=== PATIENT | male | born 1950 | race Caucasian/White ===

== ENCOUNTER → 2018-10-08 | Outpatient (CLI) | payer OTHER | END | disposition home or self-care (01) | LOC: LAB 08:00 | PROVIDERS: ATTEND Orthopaedic Surgery | DX: Z01.818 Encounter for other preprocedural examination (principal) ==

== ENCOUNTER 2018-10-17 08:30 | Inpatient (IN) | payer MEDICARE, OTHER ==
[~2018-10-17] VITALS: Ht 182.9 cm; Wt 90.4 kg
[~2018-10-17 08:30] MED LIST: ACETAMINOPHEN 500 MG TAB PO ONE; CEFAZOLIN 2 GM/50 ML (PMX) 50 ML IVPB ONE; DEXAMETHASONE 4 MG/ML 1 ML INJ IV ONE; LACTATED RINGER'S 1,000 ML IV* SCH; TRANEXAMIC ACID 1,000 MG in NS 100 ML INTRA-OP X1 IVPB ONE; TRANEXAMIC ACID 1,000 MG in NS 100 ML PRE-OP X1 IVPB ONE
[2018-11-21] VITALS (22 sets, daily range): BP systolic 93–136; BP diastolic 54–87; PULSE 71–92; RESP 16–20; Ht 182.9 cm; Wt 90.4 kg
[2018-11-21] MEDS ORDERED: EPHEDrine SULFATE 50 MG/5 ML SYG ONE (07:00)
[2018-11-21] MEDS ORDERED: SEVOFLURANE 15 MIN ONE (07:00)
[2018-11-21] MEDS ORDERED: ATOR40TA68 PO (09:32)
[2018-11-21] MEDS ORDERED: ASPI81TA52 PO (09:33)
[2018-11-21] MEDS ORDERED: AMLO1CAP10 PO (09:33)
--- NOTE | 2018-11-21 10:36 | HPN ---
Date/Time of Note Date/Time of Note DATE: 11/21/18 TIME: 10:36 Interval H&P Admission Note Pt. seen H&P reviewed: No system changes DELMAR MALLOY Nov 21, 2018 10:36
[2018-11-21] MEDS ORDERED: ROPIVACAINE 0.5 % 30 ML VIAL ONE (10:50)
[2018-11-21] MEDS ORDERED: PROPOFOL 20 ML ONE (10:50)
[2018-11-21] MEDS ORDERED: LIDOCAINE 2% (SDV) 5 ML INJ ONE (10:50)
[2018-11-21] MEDS ORDERED: CEFAZOLIN 1 GM INJ ONE (10:50)
[2018-11-21] MEDS ORDERED: LACTATED RINGER'S 1,000 ML IV SCH (11:00)
[2018-11-21] MEDS ORDERED: TRANEXAMIC ACID 1,000 MG in D5W 100 ML AT CLOSURE X1 IVPB ONE (11:00)
[2018-11-21] MEDS ORDERED: DEXAMETHASONE 4 MG/ML 1 ML INJ IV ONE (11:00)
[2018-11-21] MEDS ORDERED: CEFAZOLIN 2 GM/50 ML (PMX) 50 ML (FOR WT < 120 KG) IVPB ONE (11:00)
[2018-11-21] MEDS ORDERED: TRANEXAMIC ACID 1GM/100ML(PMX) 100 ML IVPB ONE (11:00)
[2018-11-21] MEDS ORDERED: ACETAMINOPHEN 1000MG/100ML IV 100 ML IVPB ONE (11:00)
--- NOTE | 2018-11-21 11:29 | PREAC ---
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 not on B-Stevo Reported Medications Aspirin (Low Dose Aspirin) 81 Mg Tablet.dr, 81 MG PO DAILY, #30 TAB 11/21/18 Amlodipine Besylate/Benazepril (Amlodipine-Benazepril 5-20 mg) 1 Each Capsule, 1 EACH PO DAILY, CAP 11/21/18 Atorvastatin* (Atorvastatin*) 40 Mg Tablet, 40 MG PO QHS, #30 TAB 11/21/18 Current Medications Lactated Ringer's 1,000 ml @ 125 mls/hr Q8H IV Last administered on 11/21/18at 09:39; Admin Dose 125 MLS/HR; Start 11/21/18 at 11:00 Cefazolin Sodium/ Dextrose 50 ml @ 100 mls/hr PRE-OP ONCE IVPB ; Start 11/21/18 at 11:00; Stop 11/21/18 at 11:29 Tranexamic Acid 100 ml @ 200 mls/hr AT INCISION ONCE IVPB ; Start 11/21/18 at 11:00; Stop 11/21/18 at 11:29 Tranexamic Acid 100 ml @ 200 mls/hr AT CLOSURE ONCE IVPB ; Start 11/21/18 at 11:00; Stop 11/21/18 at 11:29 Meds reviewed: Yes Allergies Coded Allergies: No Known Allergy (Unverified , 11/21/18) Allergies Reviewed: Yes Labs/Studies Labs Reviewed: Reviewed by anesthesiologist Result Diagram: 11/21/1893211/21/18932 Laboratory Tests 11/21/18 09:33 test: N/A Pre-procedure Exam Last vitals Vital Signs Date Temp Pulse Resp B/P (MAP) Pulse Ox O2 O2 Flow FiO2 Time Delivery Rate 11/21/18 36.7 09:47 11/21/18 73 16 118/70 98 Room Air 09:25 (86) Airway: Adequate mouth opening Mallampati: Mallampati I Teeth: Normal Lung: Normal Heart: Normal ASA Physical Status ASA physical status: 2 Emergency: None Planned Anesthetic General/MAC: ETT Planned Pain Management Single shot nerve block Pre-operative Attestations Prior to commencing anesthesia and surgery, the patient was re-evaluated, there was verification of: *The patient's identity *The results of appropriate recent lab work and preoperative vital signs *The above evaluation not changing prior to induction *Anesthetic plan, risk benefits, alternative and complications discussed with patient/family; questions answered; patient/family understands, accepts and wishes to proceed. NICKI CEJA MD Nov 21, 2018 11:29
[2018-11-21] MEDS ORDERED: SUCCINYLCHOLINE CHLORIDE 100 MG/5 ML SYG IV ONE (11:39)
[2018-11-21] MEDS ORDERED: ROCURONIUM 50 MG INJ ONE (11:39)
[2018-11-21] MEDS ORDERED: TRANEXAMIC ACID 1GM/100ML(PMX) 0 ML ONE (11:44)
[2018-11-21] MEDS ORDERED: MIDAZOLAM 1 MG/ML 2 ML INJ ONE (11:47)
[2018-11-21] MEDS ORDERED: BACITRACIN 50000 UNITS INJ ONE (11:50)
[2018-11-21] MEDS ORDERED: POLYMYXIN B 500000 UNIT INJ ONE (11:52)
[2018-11-21] MEDS ORDERED: TRANEXAMIC ACID 1GM/100ML(PMX) 200 ML ONE (11:52)
[2018-11-21] MEDS ORDERED: DIPHENHYDRAMINE 50 MG INJ IV PRN (13:30)
[2018-11-21] MEDS ORDERED: FENTAnyl 50 MCG/ML VIAL IV PRN ×3 (13:30)
[2018-11-21] MEDS ORDERED: EPHEDrine SULFATE 50 MG/5 ML SYG IV PRN (13:30)
[2018-11-21] MEDS ORDERED: METOCLOPRAMIDE 10 MG INJ IV PRN (13:30)
[2018-11-21] MEDS ORDERED: HYDROmorphONE 1 MG/5 ML IV SYRINGE IV PRN ×3 (13:30)
[2018-11-21] MEDS ORDERED: ONDANSETRON 4 MG INJ IV PRN (13:30)
[2018-11-21] MEDS ORDERED: MIDAZOLAM 1 MG/ML 2 ML INJ IV PRN (13:30)
[2018-11-21] MEDS ORDERED: OXYCODONE/ACETAMINOPHEN (5/325) TAB PO PRN ×2 (13:30)
[2018-11-21] MEDS ORDERED: MEPERIDINE 25 MG INJ IV PRN (13:30)
[2018-11-21] MEDS ORDERED: LABETALOL HCL 20MG INJ IV PRN (13:30)
[2018-11-21] MEDS ORDERED: hydrALAzine 20 MG INJ IV PRN (13:30)
[2018-11-21] MEDS ORDERED: ONDANSETRON 4 MG INJ ONE (14:06)
--- NOTE | 2018-11-21 14:07 | SIPON ---
Date/Time of Note Date/Time of Note DATE: 11/21/18 TIME: 14:05 Operative Report Preoperative Diagnosis Left shoulder cuff tear arthropathy Postoperative Diagnosis Same Operation/Procedure Performed Left total shoulder replacement using the reverse prosthesis Surgeon see signature line research assistant AXEL Jeter Anesthesia: general Estimated blood loss: 250 - 300 ml's Transfusion Required none Specimen Bone Grafts/Implants [place] shoulder, size 12 stem, 42 mm glenoid sphere, 42 x 3 mm polyethylene, reverse shoulder prosthesis Complications none DELMAR MALLOY Nov 21, 2018 14:07
[2018-11-21] MEDS ORDERED: NEOSTIGMINE 10 MG INJ ONE (14:18)
[2018-11-21] MEDS ORDERED: GLYCOPYRROLATE 0.4 MG INJ ONE (14:18)
[2018-11-21] MEDS: TRANEXAMIC ACID 1GM/100ML(PMX) 100 ML IVPB ONE ×2 (14:20)
[2018-11-21] MEDS ORDERED: MAGNESIUM HYDROXIDE 30ML CUP PO PRN (14:30)
[2018-11-21] MEDS: CEFAZOLIN 1 GM/50 ML (PMX) 50 ML IVPB SCH ×2 (14:57→22:18)
--- NOTE | 2018-11-21 15:55 | OPR ---
Date/Time of Note Date/Time of Note DATE: 11/21/18 TIME: 15:52 Operative Report Procedure Date: Nov 21, 2018 Preoperative Diagnosis Left shoulder cuff tear arthropathy Postoperative Diagnosis Same Operation/Procedure Performed Left total shoulder replacement reverse prosthesis Surgeon see signature line Care Clinician AXEL Jeter Anesthesia Type: general Estimated Blood Loss: 250 - 300 ml's Transfusion none Specimen Bone Grafts/Implants [place] shoulder, size 12 stem, 42 mm glenoid sphere, 42 x 3 mm polyethylene, reverse shoulder prosthesis Tubes/Drains None Complications none Pt Condition Post Procedure: stable Disposition: PACU Indications Patient is a 68-year-old male with left shoulder rotator cuff tear arthropathy Procedure Description Patient was placed in a beachchair position. The left shoulder was prepped and draped in usual manner. Preoperative antibiotics were administered. An anterior incision was made. All deltopectoral approach was made. The cephalic vein was retracted laterally with the deltoid. The conjoined tendon was retracted medially. Anterior capsule was opened. There was complete lack of rotator cuff including most of the subscapularis, complete tear of supra and spinatus and infraspinatus. The humeral head was cut and 30 degrees of retroversion. The IM canal of the humerus was prepared for a size 12 stem. The glenoid was then prepared for glenoid sphere. The glenoid baseplate was placed after reaming the glenoid. 4 screws were used to fix the glenoid plate. The 42 mm sphere was then placed and secured. After this the final size 12 stem was placed in 42 x 3 mm polyethylene placed. The reduction was stable. The shoulder had good range of motion. The wound was injected with Marcaine and pain cocktail. After final components were placed, the wound was closed in layers using #1 Vicryl for deep fascia, 2-0 Vicryl for subcutaneous tissue and 3-0 Monocryl for the skin. Patient was transferred to the recovery room in stable condition DELMAR MALLOY Nov 21, 2018 15:55
[2018-11-21] MEDS: LACTATED RINGER'S 1,000 ML IV SCH (16:07)
[2018-11-21] MEDS ORDERED: HYDROmorphONE 1 MG/ML SYG IM PRN (17:00)
[2018-11-21] MEDS: KETOROLAC 15 MG INJ IV SCH ×2 (17:40→23:38)
[2018-11-21] MEDS: HYDROCODONE/APAP (10/325) TAB PO PRN (19:49)
[2018-11-22] MEDS: LACTATED RINGER'S 1,000 ML IV SCH ×2 (00:07→05:43)
[2018-11-22] MEDS: CEFAZOLIN 1 GM/50 ML (PMX) 50 ML IVPB SCH (05:32)
[2018-11-22] MEDS: KETOROLAC 15 MG INJ IV SCH ×2 (05:33→11:15)
[2018-11-22] MEDS: HYDROCODONE/APAP (10/325) TAB PO PRN (05:43)
[2018-11-22] MEDS ORDERED: HYDROmorphONE 1 MG/ML SYG IV PRN (06:30)
[2018-11-22] MEDS ORDERED: oxyCODONE 5 MG TAB PO PRN ×2 (06:30)
[2018-11-22] MEDS: oxyCODONE 15 MG TAB PO PRN ×3 (06:32→12:55)
--- NOTE | 2018-11-22 08:06 | PAC ---
Date/Time of Note Date/Time of Note DATE: 11/22/18 TIME: 08:05 Post-Anesthesia Notes Post-Anesthesia Note Last documented vital signs Vital Signs Date Temp Pulse Resp B/P (MAP) Pulse Ox O2 O2 Flow FiO2 Time Delivery Rate 11/21/18 98.4 71 17 98/62 (74) 96 Room Air 23:35 11/21/18 6.0 14:38 Activity: WNL Respiratory function: WNL Cardiovascular function: WNL Mental status: Baseline Pain reasonably controlled: Yes Hydration appropriate: Yes Nausea/Vomiting absent: Yes NICKI CEJA MD Nov 22, 2018 08:06
[2018-11-22 08:14] VITALS: BP 106/69; PULSE 72; RESP 18
[2018-11-22] MEDS ORDERED: ASPIRIN 81 MG TAB PO SCH (09:00)
--- NOTE | 2018-11-22 10:37 | PDOCDIS ---
Discharge Instructions DIAGNOSIS Discharge Diagnosis left TSA CONDITION [id number] Patient Condition: [id number] Good HOME CARE INSTRUCTIONS: [id number] Diet Instructions: [id number] Regular ACTIVITY: [id number] Activity Restrictions: Pepqj2r No Restrictions [id number] Bathing Restrictions: [id number] Shower FOLLOW UP/APPOINTMENTS Follow-up Plan 2 weeks DELMAR MALLOY Nov 22, 2018 10:37
[2018-11-22] MEDS ORDERED: OXYC15TA PO (10:39)
--- NOTE | 2018-11-22 15:28 | PN ---
Date/Time of Note Date/Time of Note DATE: 11/22/18 TIME: 15:27 Assessment/Plan Lines/Catheters IV Catheter Type (from Nrsg): Saline Lock [place] in Place (from Nrsg): No Assessment/Plan Assessment/Plan home today, prescription for oxycodone given, will follow up in 2 weeks. Subjective 24 Hr Interval Summary patient seen this am, doing well, does have pain Exam/Review of Systems Vital Signs Vitals Vital Signs Date Temp Pulse Resp B/P (MAP) Pulse Ox O2 O2 Flow FiO2 Time Delivery Rate 11/22/18 98.7 72 18 106/69 96 Room Air 08:14 (81) 11/21/18 6.0 14:38 Intake and Output 11/21/18 11/21/18 11/22/18 1515:00 23:00 07:00 IntakeIntake Total 1000 ml 480 ml 1600 ml OutputOutput Total 50 ml 400 ml 1 ml BalanceBalance 950 ml 80 ml 1599 ml Exam Free Text/Dictation shoulder dressing intact, no NV deficit Results Result Diagram: 11/22/18 0441 11/22/18 0441 DELMAR MALLOY Nov 22, 2018 15:28
== END 2018-11-22 13:53 | disposition home health service (06) | DRG 483 ==
LOC: REC 11-21 08:33 → MS1 11-21 15:44
PROVIDERS: ADMIT Orthopaedic Surgery; ATTEND Orthopaedic Surgery
PROC: 0RRK00Z Replacement of Left Shoulder Joint with Reverse Ball and Socket Synthetic Substitute, Open Approach (ICD-10-PCS; principal; 2018-11-21 11:00)
DX: M19.012 Primary osteoarthritis, left shoulder (principal); M75.102 Unspecified rotator cuff tear or rupture of left shoulder, not specified as traumatic; Z72.0 Tobacco use
CPT/HCPCS: 80048; 80053; 85014; 85018; 85025; 85610; 85730; 86850; 86900; 86901; 87081; 88304; 88311; 90686; 97161; 97166; C1776; J0131; J0171; J0690; J0735; J1100; J1170; J1885; J2175; J2250; J2405; J2710; J2795; J7120

== ENCOUNTER 2018-12-25 10:14 | Emergency (ER) | payer SELFPAY ==
[~2018-12-25 10:14] MED LIST changes: -ACETAMINOPHEN 500 MG TAB PO ONE; +AMLO1CAP10 PO; +ASPI81TA52 PO; +ATOR40TA68 PO; -CEFAZOLIN 2 GM/50 ML (PMX) 50 ML IVPB ONE; -DEXAMETHASONE 4 MG/ML 1 ML INJ IV ONE; -LACTATED RINGER'S 1,000 ML IV* SCH; +OXYC15TA PO; -TRANEXAMIC ACID 1,000 MG in NS 100 ML INTRA-OP X1 IVPB ONE; -TRANEXAMIC ACID 1,000 MG in NS 100 ML PRE-OP X1 IVPB ONE
== END 2018-12-25 11:20 | disposition left against medical advice (07) ==
LOC: E/R 10:14
DX: Z53.21 Procedure and treatment not carried out due to patient leaving prior to being seen by health care provider (principal)

== ENCOUNTER 2018-12-26 10:44 | Inpatient (IN) | payer OTHER ==
[2018-12-26] VITALS (20 sets, daily range): BP systolic 100–128; BP diastolic 66–80; PULSE 76–110; RESP 12–25; Ht 182.9 cm; Wt 85.4 kg
[~2018-12-26] VITALS: Ht 182.9 cm; Wt 85.4 kg
[~2018-12-26 10:44] MED LIST changes: +ACETAMINOPHEN 500 MG TAB PO ONE; +CEFAZOLIN 1 GM INJ ONE; +DEXAMETHASONE 4 MG/ML 1 ML INJ IV ONE; +LACTATED RINGER'S 1,000 ML IV SCH; +LIDOCAINE 2% (SDV) 5 ML INJ ONE; +PROPOFOL 200 MG INJ ONE; +ROCURONIUM 50 MG INJ ONE; +ROPIVACAINE 0.5 % 30 ML VIAL ONE; +SEVOFLURANE 15 MIN ONE; +SUCCINYLCHOLINE CHLORIDE 100 MG/5 ML SYG IV ONE; +TRANEXAMIC ACID 1GM/100ML(PMX) 100 ML AT CLOSURE X1 IVPB ONE; +TRANEXAMIC ACID 1GM/100ML(PMX) 100 ML AT INCISION X1 IVPB ONE
[2018-12-26] MEDS ORDERED: BACITRACIN 50000 UNITS INJ ONE (12:47)
[2018-12-26] MEDS ORDERED: SURGIFOAM POWDER 1 GM KIT ONE (12:53)
[2018-12-26] MEDS ORDERED: POLYMYXIN B 500000 UNIT INJ ONE (12:53)
[2018-12-26] MEDS ORDERED: THROMBIN (BOVINE) 5,000 UNIT VIAL TP ONE (12:53)
[2018-12-26] MEDS ORDERED: TRANEXAMIC ACID 1GM/100ML(PMX) 0 ML ONE (12:54)
--- NOTE | 2018-12-26 12:55 | PREAC ---
Date/Time of Note Date/Time of Note DATE: 12/26/18 TIME: 12:54 Anesthesia Eval and Record Evaluation Time Pre-Procedure Interview DATE: 12/26/18 TIME: 12:54 Age 68 Sex male NPO: 8 hrs Preoperative diagnosis L infected shoulder replacement Planned procedure I & D of left shoulder hardware, antibiotic bead placement Past Medical History Past Medical History: Includes Cardio: HTN, Dyslipidemia Surgery & Anesthesia Issues No known issue Meds Anticoagulation: No Beta Stevo within 24 hr: No Reason Beta Stevo not given: Pt. not on B-Stevo Reported Medications Aspirin (Low Dose Aspirin) 81 Mg Tablet.dr, 81 MG PO DAILY, #30 TAB 11/21/18 Amlodipine Besylate/Benazepril (Amlodipine-Benazepril 5-20 mg) 1 Each Capsule, 1 EACH PO DAILY, CAP 11/21/18 Atorvastatin* (Atorvastatin*) 40 Mg Tablet, 40 MG PO QHS, #30 TAB 11/21/18 Discontinued Scripts Oxycodone Hcl* (IR) (Oxycodone Hcl*) 15 Mg Tablet, 15 MG PO Q3H PRN for SEVERE PAIN LEVEL 7-10 for 7 Days, #60 TAB Prov:BHAGIA,DELMAR 11/22/18 Current Medications Lactated Ringer's 1,000 ml @ 25 mls/hr Q24H IV Last administered on 12/26/18at 12:08; Admin Dose 25 MLS/HR; Start 12/26/18 at 06:30; Stop 12/26/18 at 20:00 Meds reviewed: Yes Allergies Coded Allergies: No Known Allergy (Unverified , 12/26/18) Allergies Reviewed: Yes Labs/Studies Labs Reviewed: Reviewed by anesthesiologist test: N/A Studies: ECG, CXR Pre-procedure Exam Last vitals Vital Signs Date Temp Pulse Resp B/P (MAP) Pulse Ox O2 O2 Flow FiO2 Time Delivery Rate 12/26/18 98.2 76 16 117/75 98 11:48 (89) Airway: Adequate mouth opening, Adequate thyromental dist Mallampati: Mallampati III Teeth: Normal Lung: Normal Heart: Normal ASA Physical Status ASA physical status: 2 Emergency: None Planned Anesthetic General/MAC: ETT Planned Pain Management Single shot nerve block, Parenteral pain med, Local by surgeon Pre-operative Attestations Prior to commencing anesthesia and surgery, the patient was re-evaluated, there was verification of: *The patient's identity *The results of appropriate recent lab work and preoperative vital signs *The above evaluation not changing prior to induction *Anesthetic plan, risk benefits, alternative and complications discussed with patient/family; questions answered; patient/family understands, accepts and wishes to proceed. ANTHONY BERG MD Dec 26, 2018 12:55
[2018-12-26] MEDS ORDERED: FENTAnyl 50 MCG/ML VIAL ONE (12:59)
[2018-12-26] MEDS ORDERED: DIPHENHYDRAMINE 50 MG INJ IV PRN (13:00)
[2018-12-26] MEDS ORDERED: MIDAZOLAM 1 MG/ML 2 ML INJ IV PRN (13:00)
[2018-12-26] MEDS ORDERED: IPRATROPIUM (NEB) 0.5 MG/2.5 ML AMP HHN PRN (13:00)
[2018-12-26] MEDS ORDERED: LEVALBUTEROL (NEB) 1.25 MG/0.5 ML AMP HHN PRN (13:00)
[2018-12-26] MEDS ORDERED: LORAZEPAM 2 MG INJ IV PRN (13:00)
[2018-12-26] MEDS ORDERED: FENTAnyl 50 MCG/ML VIAL IV PRN ×2 (13:00)
[2018-12-26] MEDS ORDERED: hydrALAzine 20 MG INJ IV PRN ×2 (13:00→17:30)
[2018-12-26] MEDS ORDERED: HYDROmorphONE 1 MG/5 ML IV SYRINGE IV PRN ×2 (13:00)
[2018-12-26] MEDS ORDERED: ONDANSETRON 4 MG INJ IV PRN (13:00)
[2018-12-26] MEDS ORDERED: MIDAZOLAM 1 MG/ML 2 ML INJ ONE (13:00)
[2018-12-26] MEDS ORDERED: MEPERIDINE 25 MG INJ IV PRN (13:00)
[2018-12-26] MEDS ORDERED: LABETALOL HCL 20MG INJ IV PRN (13:00)
[2018-12-26] MEDS ORDERED: ONDANSETRON 4 MG INJ ONE (13:02)
[2018-12-26] MEDS ORDERED: METOCLOPRAMIDE 10 MG INJ ONE (13:03)
[2018-12-26] MEDS ORDERED: VANCOMYCIN 1 GM INJ ONE (13:18)
[2018-12-26] MEDS ORDERED: TOBRAMYCIN 1.2 GM POWDER ONE (13:19)
[2018-12-26] MEDS ORDERED: HYDROmorphONE 2 MG/ML SYG ONE (14:47)
[2018-12-26] MEDS ORDERED: hydrALAzine 20 MG INJ ONE (15:09)
--- NOTE | 2018-12-26 16:13 | HPN ---
Date/Time of Note Date/Time of Note DATE: 12/26/18 TIME: 16:13 Interval H&P Admission Note Pt. seen H&P reviewed: No system changes DELMAR MALLOY Dec 26, 2018 16:13
--- NOTE | 2018-12-26 16:14 | SIPON ---
Date/Time of Note Date/Time of Note DATE: 12/26/18 TIME: 16:13 Operative Report Preoperative Diagnosis infected left total shoulder replacement Postoperative Diagnosis Same Operation/Procedure Performed Irrigation, debridement of the left shoulder with polyethylene exchange and placement of antibiotic beads Surgeon see signature line pet care assistant None Anesthesia: general Estimated blood loss: 250 - 300 ml's Transfusion Required none Specimen Cultures Grafts/Implants 3 mm polyethylene Complications none DELMAR MALLOY Dec 26, 2018 16:14
--- NOTE | 2018-12-26 16:17 | OPR ---
Date/Time of Note Date/Time of Note DATE: 12/26/18 TIME: 16:14 Operative Report Procedure Date: Dec 26, 2018 Preoperative Diagnosis Infection of left shoulder prosthesis Postoperative Diagnosis Same Operation/Procedure Performed I&D of left shoulder, with polyethylene exchange and placement of antibiotic beads Surgeon see signature line Needle Control [place] None Anesthesia Type: general Estimated Blood Loss: 250 - 300 ml's Transfusion none Specimen Cultures Grafts/Implants Polyethylene exchange, 3 mm polyethylene Tubes/Drains None Complications none Pt Condition Post Procedure: stable Disposition: PACU Procedure Description The patient was placed supine on the operating room table. The left shoulder was prepped and draped in the usual manner. A deltopectoral approach was used. The deltoid was retracted laterally and the pectoral muscles retracted medially. Once the joint was entered,, a cloudy effusion was encountered. Cultures were obtained. There was clear evidence of infection around the prosthesis. The shoulder was dislocated and the polyethylene removed. The shoulder was thoroughly irrigated with 6 L of antibiotic solution. Curettes were used to debride the shoulder. Tissue cultures were obtained as well. A new polyethylene was then placed and the shoulder reduced. Antibiotic beads were made using 1 g of vancomycin powder and 0.6 g of tobramycin powder. The beads were placed around the prosthesis and the wound closed in layers using #1 strata fix for deep fascia 2-0 Vicryl for subcutaneous tissue and 3-0 Monocryl for the skin. Patient was transferred to the recovery room in stable condition DELMAR MALLOY Dec 26, 2018 16:17
[2018-12-26] MEDS ORDERED: CEFAZOLIN 1 GM/50 ML (PMX) 50 ML IVPB SCH (16:30)
--- NOTE | 2018-12-26 16:35 | PAC ---
Date/Time of Note Date/Time of Note DATE: 12/26/18 TIME: 16:35 Post-Anesthesia Notes Post-Anesthesia Note Last documented vital signs Vital Signs Date Temp Pulse Resp B/P (MAP) Pulse Ox O2 O2 Flow FiO2 Time Delivery Rate 12/26/18 98.2 16:28 12/26/18 76 16 117/75 98 11:48 (89) Activity: WNL Respiratory function: WNL Cardiovascular function: WNL Mental status: Baseline Pain reasonably controlled: Yes Hydration appropriate: Yes Nausea/Vomiting absent: Yes ANTHONY BERG MD Dec 26, 2018 16:35
[2018-12-26] MEDS: HYDROmorphONE 1 MG/5 ML IV SYRINGE IV PRN ×4 (16:53→17:32)
[2018-12-26] MEDS: LACTATED RINGER'S 1,000 ML IV SCH ×2 (16:56→21:24)
--- NOTE | 2018-12-26 17:18 | CONS ---
Assessment/Plan Assessment/Plan Hospital Course (Demo Recall) 68 yo M with PMH HTN, HLD, gastritis, BPH, thoracic aortic aneurysm, and left shoulder pain presented for elective L shoulder Irrigation, debridement of the left shoulder with polyethylene exchange and placement of antibiotic beads. POD #0 Assessment/Plan (Daily) 1. Left shoulder infection s/p elective L shoulder Irrigation, debridement of the left shoulder with polyethylene exchange and placement of antibiotic beads. POD #0 - post operative management per Ortho recommendations - ID consulted for antibiotic management - pain control 2. HTN - will continue home Norvasc and benazepril. Will adjust as needed given history of AAA and need for tight BP control 3. HLD - continue statin 4. h/o Thoracic AAA - has outpatient cardiology follow up 5. Diet - cardiac 6. Disposition - close monitoring of blood pressure during hospital stay - ID consulted for antibiotic recommendations Thank you for allowing me to participate in the care of your patient. Please call with any questions Consultation Date/Type/Reason Admit Date/Time Dec 26, 2018 at 10:44 Type of Consult Internal medicine Reason for Consultation Medical management Date/Time of Note DATE: 12/26/18 TIME: 17:02 Hx of Present Illness 68 yo M with PMH HTN, HLD, gastritis, BPH, thoracic aortic aneurysm, and left shoulder pain presented for elective L shoulder Irrigation, debridement of the left shoulder with polyethylene exchange and placement of antibiotic beads. Patient has a history of left sided total shoulder repair infection and has been experiencing 5 weeks of worsening pain. Patient underwent surgical intervention with no acute intraoperative complications. Internal medicine was consulted for medical management. Patient was interviewed in the PACU and was complaining of pain in left shoulder. Denies any dizziness, nausea, vomiting, chest pain, shortness of breath, abdominal pain, or urinary issues. Patient states he quit smoking and socially drinks. All 12 systems reviewed and pertinent positives as per HPI. All others negative. Constitutional: No chills, No febrile Eyes: No discharge ENT: No congestion Respiratory: No cough, No shortness of breath, No sputum, No wheezing Cardiovascular: No chest pain, No lightheadedness, No palpitations Gastrointestinal: No pain, No constipation, No diarrhea, No nausea, No vomiting Genitourinary: no complaints Musculoskeletal: bone/joint pain (left shoulder) Skin: No bruising, No laceration, No rash Neurologic: no complaints Endocrine: no complaints Lymphatic: no complaints Psychological: nl mood/affect Immunologic: no complaints Past Medical History Medical History: GERD, high cholesterol, hypertension, other (AAA, BPH) Home Meds Reported Medications Aspirin (Low Dose Aspirin) 81 Mg Tablet.dr, 81 MG PO DAILY, #30 TAB 11/21/18 Amlodipine Besylate/Benazepril (Amlodipine-Benazepril 5-20 mg) 1 Each Capsule, 1 EACH PO DAILY, CAP 11/21/18 Atorvastatin* (Atorvastatin*) 40 Mg Tablet, 40 MG PO QHS, #30 TAB 11/21/18 Discontinued Scripts Oxycodone Hcl* (IR) (Oxycodone Hcl*) 15 Mg Tablet, 15 MG PO Q3H PRN for SEVERE PAIN LEVEL 7-10 for 7 Days, #60 TAB Prov:BHAGIA,DELMAR 11/22/18 Medications Current Medications Cefazolin Sodium 50 ml @ 100 mls/hr Q8H IVPB ; Start 12/26/18 at 16:30; Stop 12/27/18 at 08:59 Magnesium Hydroxide (Milk Of Mag) 30 ml BID PRN PO CONSTIPATION; Start 12/26/18 at 16:30 Lactated Ringer's 1,000 ml @ 100 mls/hr Q10H IV Last administered on 12/26/18at 16:56; Admin Dose 100 MLS/HR; Start 12/26/18 at 16:19 Aspirin (Aspirin) 81 mg DAILY PO ; Start 12/27/18 at 09:00 Hydromorphone HCl (Dilaudid) 1 mg Q3H PRN IV SEVERE PAIN LEVEL 7-10; Start 12/26/18 at 16:30 Oxycodone HCl (Roxicodone) 15 mg Q4H PRN PO MODERATE PAIN LEVEL 4-6; Start 12/26/18 at 16:30 Allergies: Coded Allergies: No Known Allergy (Unverified , 12/26/18) Past Surgical History Past Surgical Hx: other (back surgery, L hip replacement, L rotator cuff tear) Family History Significant Family History: no pertinent family hx Social History Alcohol Use: occasionally Smoking Status: Former smoker Drug Use: none Exam/Review of Systems Exam Vitals Vital Signs Date Temp Pulse Resp B/P (MAP) Pulse Ox O2 O2 Flow FiO2 Time Delivery Rate 12/26/18 100 23 115/72 94 Room Air 16:55 (86) 12/26/18 8.0 16:35 12/26/18 98.2 16:28 Exam General: Patient is laying in bed, mild distress secondary to pain in L shoulder. answering questions appropriately. still lethargic from anesthesia Head: Normocephalic atraumatic Eyes: EOMI, pupils reactive to light Neck: Supple, nontender, midline Respiratory: Clear to auscultation bilaterally. no wheezing or rhonchi Cardiovascular: S1, S2, regular rhythm, tachycardia, no obvious murmurs Gastrointestinal: soft, non-tender to palpation, nondistended, bowel sounds heard. Neurological: Moves all extremities spontaneously Skin: No new skin lesions. dressing on left chest wall below shoulder, clean and dry Imaging Imaging PROCEDURE: XR Chest. CLINICAL INDICATION: PRE OP TECHNIQUE: Portable AP view of the chest was obtained. COMPARISON: None. FINDINGS: No pulmonary consolidation or edema. No effusion or pneumothorax. Cardiac silhouette is normal. No acute osseous abnormality. Calcified atherosclerosis of the thoracic aorta. Left shoulder reverse total arthroplasty. IMPRESSION: No evidence of acute cardiopulmonary process. Calcified atherosclerosis of the thoracic aorta. RPTAT:AAJJ Physician Germán Date Time Electronically viewed and signed by Michelle Kerr Physician on 12/26/2018 13:19 Medications Medication Current Medications Cefazolin Sodium 50 ml @ 100 mls/hr Q8H IVPB ; Start 12/26/18 at 16:30; Stop 12/27/18 at 08:59 Magnesium Hydroxide (Milk Of Mag) 30 ml BID PRN PO CONSTIPATION; Start 12/26/18 at 16:30 Lactated Ringer's 1,000 ml @ 100 mls/hr Q10H IV Last administered on 12/26/18at 16:56; Admin Dose 100 MLS/HR; Start 12/26/18 at 16:19 Aspirin (Aspirin) 81 mg DAILY PO ; Start 12/27/18 at 09:00 Hydromorphone HCl (Dilaudid) 1 mg Q3H PRN IV SEVERE PAIN LEVEL 7-10; Start 12/26/18 at 16:30 Oxycodone HCl (Roxicodone) 15 mg Q4H PRN PO MODERATE PAIN LEVEL 4-6; Start 12/26/18 at 16:30 DEANA FLORES MD Dec 26, 2018 17:17
[2018-12-26] MEDS: oxyCODONE 15 MG TAB PO PRN ×2 (18:15→22:30)
[2018-12-26] MEDS ORDERED: ATORVASTATIN 40 MG TAB PO SCH (21:00)
[2018-12-26] MEDS ORDERED: CEFEPIME 2GM/50 ML (PMX) 50 ML IVPB SCH (23:30)
[2018-12-26] MEDS ORDERED: VANCOMYCIN IV PER PHARMACY XX SCH (23:30)
--- NOTE | 2018-12-26 23:33 | CONS ---
Assessment/Plan Assessment/Plan Hospital Course (Demo Recall) assessment/impression - prosthetic infection of L shoulder - s/p I&D of L shoulder, with polyethylene exchange and placement of antibiotic beads (vancomycin and tobramycin) on 12/26/2018 - h/o L shoulder rotator cuff tear arthropathy due to an accident - h/o L total shoulder replacement reverse prosthesis on 11/21/2018 - h/o L hip replacement - hyperlipidemia recommendations - pending results: cultures of tissue and effusion (aerobic and anaerobic bacterial, fungal and AFB). The cultures may be negative thanks to several doses of PO cephalexin which he took on 12/19/2018 and 12/20/2018 - ordered: two sets of blood cultures and ESR - start IV vancomycin and cefepime (12/26/2018-) after blood cultures are collected. will adjust the antibiotics based on the final culture results - Pt will eventually need PICC for long-term IV antibiotic infusion. This was discussed with Pt today management d/w Pt and his RN An. discussed with Dr. Malloy earlier today Consultation Date/Type/Reason Admit Date/Time Dec 26, 2018 at 10:44 Date of Consultation: Dec 26, 2018 Type of Consult ID Reason for Consultation prosthetic infection of L shoulder Requesting Provider: DELMAR MALLOY Date/Time of Note DATE: 12/26/18 TIME: 23:03 Hx of Present Illness This is a 68 yo male who was admitted for prosthetic infection of L shoulder. Pt had history of L shoulder rotator cuff tear arthropathy due to an accident. On 11/21/2018 Pt underwent L total shoulder replacement reverse prosthesis. Post-operatively Pt was doing well. Around 12/18/2018, Pt started experiencing fever, chills, malaise and "upset stomach." He denies trauma to the operated joint, no contact with insects/animals and no invasive procedures other than the shoulder replacement. The pain was rated at 8 on the 1-10 scale. Pt presented at a doctor's office and was instructed to take PO cephalexin 500 mg "every 4 hrs." Pt took it for a few days and was subsequently evaluated by Dr. Malloy. Prosthetic infection of L shoulder was suspected. Pt stopped taking PO cephalexin at that point. Today (12/26/2018), Pt underwent I&D of L shoulder, with polyethylene exchange and placement of antibiotic beads (vancomycin and tobramycin). According to Dr. Malloy, cloudy effusion was seen intra- operatively. Series of cultures were collected. At present, Pt's pain is controlled at 3 by pain medications. He is no longer experiencing fever, chills, malaise or GI symptoms. Dr. Malloy requested ID consultation on this Pt. Constitutional: improved Eyes: no complaints ENT: no complaints Respiratory: no complaints Cardiovascular: no complaints Gastrointestinal: no complaints Genitourinary: no complaints Musculoskeletal: bone/joint pain, restricted range of motion Skin: no complaints Neurologic: no complaints Lymphatic: no complaints Past Medical History Medical History: GERD, high cholesterol, hypertension, other (AAA, BPH) Home Meds Reported Medications Aspirin (Low Dose Aspirin) 81 Mg Tablet., 81 MG PO DAILY, #30 TAB 11/21/18 Amlodipine Besylate/Benazepril (Amlodipine-Benazepril 5-20 mg) 1 Each Capsule, 1 EACH PO DAILY, CAP 11/21/18 Atorvastatin* (Atorvastatin*) 40 Mg Tablet, 40 MG PO QHS, #30 TAB 11/21/18 Discontinued Scripts Oxycodone Hcl* (IR) (Oxycodone Hcl*) 15 Mg Tablet, 15 MG PO Q3H PRN for SEVERE PAIN LEVEL 7-10 for 7 Days, #60 TAB Prov:DELMAR MALLOY 11/22/18 Medications Current Medications Cefazolin Sodium 50 ml @ 100 mls/hr Q8H IVPB ; Start 12/26/18 at 16:30; Stop 12/27/18 at 08:59 Magnesium Hydroxide (Milk Of Mag) 30 ml BID PRN PO CONSTIPATION; Start 12/26/18 at 16:30 Lactated Ringer's 1,000 ml @ 100 mls/hr Q10H IV Last administered on 12/26/18at 21:24; Admin Dose 100 MLS/HR; Start 12/26/18 at 16:19 Aspirin (Aspirin) 81 mg DAILY PO ; Start 12/27/18 at 09:00 Hydromorphone HCl (Dilaudid) 1 mg Q3H PRN IV SEVERE PAIN LEVEL 7-10; Start 12/26/18 at 16:30 Oxycodone HCl (Roxicodone) 15 mg Q4H PRN PO MODERATE PAIN LEVEL 4-6 Last administered on 12/26/18at 22:30; Admin Dose 15 MG; Start 12/26/18 at 16:30 Amlodipine Besylate (Norvasc) 5 mg DAILY PO ; Start 12/27/18 at 09:00 Benazepril HCl (Lotensin) 20 mg DAILY PO ; Start 12/27/18 at 09:00 Hydralazine HCl (Apresoline) 10 mg Q4H PRN IV SBP >150; Start 12/26/18 at 17:30 Atorvastatin Calcium (Lipitor) 40 mg DAILY PO ; Start 12/27/18 at 09:00 Allergies: Coded Allergies: No Known Allergy (Unverified , 12/26/18) Past Surgical History Past Surgical Hx: other (back surgery, L hip replacement, L rotator cuff tear) Social History Alcohol Use: occasionally Smoking Status: Former smoker Drug Use: none Other Social History lives at home with his rivas and his step daughter Exam/Review of Systems Exam Vitals Vital Signs Date Temp Pulse Resp B/P (MAP) Pulse Ox O2 O2 Flow FiO2 Time Delivery Rate 12/26/18 97.6 105 18 106/66 95 19:40 (79) 12/26/18 Nasal 2.0 19:00 Cannula Constitutional: alert, oriented, well developed Psych: no complaints, nl mood/affect Head: normocephalic, atraumatic Eyes: nl conjunctiva, EOMI, nl lids, nl sclera ENMT: nl external ears & nose, nl lips & teeth, nl nasal mucosa & septum, mucosa pink and moist Neck: supple, other (not swollen) Respiratory: clear to auscultation, normal air movement Cardiovascular: regular rate and rhythm, nl pulses Gastrointestinal: soft, non-tender; No distended, No tender Musculoskeletal: other (L shoulder in a sling, the wound is covered, the surroundig skin is not swollen or erythematous) Extremities: No edema Neurological: HARDWARE TRAINER II-XII intact, nl mental status, nl speech, nl strength Skin: nl turgor; No rash or lesions Medications Medication Current Medications Cefazolin Sodium 50 ml @ 100 mls/hr Q8H IVPB ; Start 12/26/18 at 16:30; Stop 12/27/18 at 08:59 Magnesium Hydroxide (Milk Of Mag) 30 ml BID PRN PO CONSTIPATION; Start 12/26/18 at 16:30 Lactated Ringer's 1,000 ml @ 100 mls/hr Q10H IV Last administered on 12/26/18at 21:24; Admin Dose 100 MLS/HR; Start 12/26/18 at 16:19 Aspirin (Aspirin) 81 mg DAILY PO ; Start 12/27/18 at 09:00 Hydromorphone HCl (Dilaudid) 1 mg Q3H PRN IV SEVERE PAIN LEVEL 7-10; Start 12/26/18 at 16:30 Oxycodone HCl (Roxicodone) 15 mg Q4H PRN PO MODERATE PAIN LEVEL 4-6 Last administered on 12/26/18at 22:30; Admin Dose 15 MG; Start 12/26/18 at 16:30 Amlodipine Besylate (Norvasc) 5 mg DAILY PO ; Start 12/27/18 at 09:00 Benazepril HCl (Lotensin) 20 mg DAILY PO ; Start 12/27/18 at 09:00 Hydralazine HCl (Apresoline) 10 mg Q4H PRN IV SBP >150; Start 12/26/18 at 17:30 Atorvastatin Calcium (Lipitor) 40 mg DAILY PO ; Start 12/27/18 at 09:00 LUI JUAN M.D. Dec 26, 2018 23:18
[2018-12-26] MEDS: HYDROmorphONE 1 MG/ML SYG IV PRN (23:47)
[2018-12-27 00:04] VITALS: BP 126/72; PULSE 87; RESP 18
[2018-12-27] MEDS ORDERED: VANCOMYCIN HCL 1.75 GM in SOD CHLORIDE 0.9% 500 ML IVPB ONE (01:00)
[2018-12-27] MEDS ORDERED: HYDROmorphONE 0.5 MG/0.5 ML SYG IV ONE (01:30)
[2018-12-27] MEDS ORDERED: DIPHENHYDRAMINE 25 MG CAP PO ONE (01:30)
[2018-12-27] MEDS: HYDROmorphONE 1 MG/ML SYG IV PRN (03:26)
[2018-12-27] MEDS ORDERED: HYDROmorphONE 1 MG/ML SYG IV ONE (05:30)
[2018-12-27] MEDS ORDERED: LORAZEPAM 0.5 MG TAB PO ONE (05:30)
[2018-12-27] MEDS: CEFEPIME 2GM/50 ML (PMX) 50 ML IVPB SCH ×3 (05:35→22:08)
[2018-12-27 07:28] VITALS: BP 117/59; PULSE 82; RESP 19
[2018-12-27] MEDS: KETOROLAC 15 MG INJ IV PRN ×3 (07:56→20:05)
--- NOTE | 2018-12-27 08:34 | CONS ---
Assessment/Plan Assessment/Plan Hospital Course (Demo Recall) 68 yo M with PMH HTN, HLD, gastritis, BPH, thoracic aortic aneurysm, and left shoulder pain presented for elective L shoulder Irrigation, debridement of the left shoulder with polyethylene exchange and placement of antibiotic beads. POD #1 Assessment/Plan (Daily) 1. Left shoulder infection s/p elective L shoulder Irrigation, debridement of the left shoulder with polyethylene exchange and placement of antibiotic beads. POD #1 - post operative management per Ortho recommendations - ID consultation appreciate and awaiting culture results from left shoulder. Blood cultures obtained as well. Will most likely need mcfp IV antibiotics with PICC line placement. Patient agreeable but would like to hold off for now on placement - continue current pain control 2. HTN - stable - continue home medications 3. HLD - continue statin 4. h/o Thoracic AAA - has outpatient cardiology follow up 5. Insomnia - Trazodone PRN 6. Disposition - Per ID, awaiting culture results to determine final antibiotic recommendations - PICC line placement once patient agreeable Consultation Date/Type/Reason Admit Date/Time Dec 26, 2018 at 10:44 Initial Consult Date 12/26/18 Type of Consult Internal medicine Reason for Consultation medical management Requesting Provider: DELMAR MALLOY Date/Time of Note DATE: 12/27/18 TIME: 08:34 24 HR Interval Summary Free Text/Dictation Patient states he had a rough night due to pain but feeling better given pain control effective. Exam/Review of Systems Exam Vitals Vital Signs Date Temp Pulse Resp B/P (MAP) Pulse Ox O2 O2 Flow FiO2 Time Delivery Rate 12/27/18 98.2 82 19 117/59 96 07:28 (78) 12/26/18 Nasal 2.0 19:00 Cannula Intake and Output 12/26/18 12/26/18 12/27/18 1515:00 23:00 07:00 IntakeIntake Total 1750 ml 2040 ml 2100 ml OutputOutput Total 50 ml 400 ml BalanceBalance 1750 ml 1990 ml 1700 ml Exam General: Patient is laying in bed, no acute distress. awake and answering questions appropriately Eyes: EOMI, pupils reactive to light Neck: Supple, nontender, midline Respiratory: Clear to auscultation bilaterally. no wheezing or rhonchi Cardiovascular: S1, S2, regular rhythm, tachycardia, no obvious murmurs Gastrointestinal: soft, non-tender to palpation, nondistended, bowel sounds heard. Neurological: Moves all extremities spontaneously Skin: No new skin lesions. dressing in place, no leakage Results Results 24hrs Laboratory Tests Test 12/26/18 23:49 12/27/18 07:08 Erythrocyte Sedimentation Rate 53 H Lab Scanned Report REFERENCE LAB Medications Medication Current Medications Magnesium Hydroxide (Milk Of Mag) 30 ml BID PRN PO CONSTIPATION; Start 12/26/18 at 16:30 Lactated Ringer's 1,000 ml @ 100 mls/hr Q10H IV Last administered on 12/26/18at 21:24; Admin Dose 100 MLS/HR; Start 12/26/18 at 16:19 Aspirin (Aspirin) 81 mg DAILY PO ; Start 12/27/18 at 09:00 Hydromorphone HCl (Dilaudid) 1 mg Q3H PRN IV SEVERE PAIN LEVEL 7-10 Last administered on 12/27/18at 03:26; Admin Dose 1 MG; Start 12/26/18 at 16:30 Oxycodone HCl (Roxicodone) 15 mg Q4H PRN PO MODERATE PAIN LEVEL 4-6 Last administered on 12/26/18at 22:30; Admin Dose 15 MG; Start 12/26/18 at 16:30 Amlodipine Besylate (Norvasc) 5 mg DAILY PO ; Start 12/27/18 at 09:00 Benazepril HCl (Lotensin) 20 mg DAILY PO ; Start 12/27/18 at 09:00 Hydralazine HCl (Apresoline) 10 mg Q4H PRN IV SBP >150; Start 12/26/18 at 17:30 Atorvastatin Calcium (Lipitor) 40 mg DAILY PO ; Start 12/27/18 at 09:00 Vancomycin HCl (Vanco Iv Per Pharmacy) VANCOMYCIN PER PHARMACY PER PROTOCOL XX ; Start 12/26/18 at 23:30 Vancomycin HCl 1.25 gm/Sodium Chloride 250 ml @ 83.333 mls/ hr Q12H IVPB ; Start 12/27/18 at 13:00 Cefepime HCl 50 ml @ 100 mls/hr Q8 IVPB Last administered on 12/27/18at 05:35; Admin Dose 100 MLS/HR; Start 12/27/18 at 06:30 Ketorolac Tromethamine (Toradol) 15 mg Q6H PRN IV PAIN Last administered on 12/27/18at 07:56; Admin Dose 15 MG; Start 12/27/18 at 06:30; Stop 12/30/18 at 06:29 Oxycodone HCl (Oxycontin) 20 mg BID PO ; Start 12/27/18 at 09:00 Gabapentin (Neurontin) 100 mg TID PO ; Start 12/27/18 at 09:00 Miscellaneous Information (*Rx Drug Level Order Reminder*) VANCO TROUGH @ 1,200 ON... 1200 ONCE XX ; Start 12/28/18 at 12:00; Stop 12/28/18 at 12:01 DEANA FLORES MD Dec 27, 2018 08:34
[2018-12-27] MEDS: BENAZEPRIL 20 MG TAB PO SCH (08:39)
[2018-12-27] MEDS: ATORVASTATIN 40 MG TAB PO SCH (08:40)
[2018-12-27] MEDS: ASPIRIN 81 MG TAB PO SCH (08:40)
[2018-12-27] MEDS: oxyCODONE (CR) 20 MG TAB [oxyCONTIN] PO SCH ×2 (08:40→20:58)
[2018-12-27] MEDS: GABAPENTIN 100 MG CAP PO SCH ×3 (08:40→20:58)
[2018-12-27] MEDS: AMLODIPINE 5 MG TAB PO SCH (08:40)
[2018-12-27] MEDS ORDERED: traZODone 50 MG TAB PO PRN (09:00)
[2018-12-27] MEDS: LACTATED RINGER'S 1,000 ML IV SCH ×2 (13:03→22:19)
[2018-12-27] MEDS: oxyCODONE 15 MG TAB PO PRN (13:03)
[2018-12-27] MEDS: VANCOMYCIN HCL 1.25 GM in SOD CHLORIDE 0.9% 250 ML IVPB SCH (13:24)
[2018-12-27 15:29] VITALS: BP 121/62; PULSE 88; RESP 18
[2018-12-27 19:20] VITALS: BP 95/62; PULSE 71; RESP 18
--- NOTE | 2018-12-27 21:02 | CONS ---
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 The cultures may be negative thanks to several doses of PO cephalexin which he took on 12/19/2018 and 12/20/2018, blood cultures - continue IV vancomycin and cefepime (12/26/2018-). will adjust the antibiotics based on the final culture results. I recommend 6 weeks of antibiotic(s) via PICC management d/w Pt Consultation Date/Type/Reason Admit Date/Time Dec 26, 2018 at 10:44 Initial Consult Date 12/26/18 Type of Consult ID Requesting Provider: DELMAR MALLOY Date/Time of Note DATE: 12/27/18 TIME: 21:00 24 HR Interval Summary Constitutional: improved, other (had a relaxing day, walked) Detailed Summary Eyes: no complaints ENT: no complaints Respiratory: no complaints Cardiovascular: no complaints Gastrointestinal: no complaints Genitourinary: no complaints Musculoskeletal: bone/joint pain (pain of L shoulder is well controlled), restricted range of motion, other (walked) Skin: no complaints Neurologic: other (no numbness) Exam/Review of Systems Exam Vitals Vital Signs Date Temp Pulse Resp B/P (MAP) Pulse Ox O2 O2 Flow FiO2 Time Delivery Rate 12/27/18 98.2 71 18 95/62 (73) 91 19:20 12/27/18 Nasal 2.0 08:59 Cannula Intake and Output 12/26/18 12/26/18 12/27/18 1515:00 23:00 07:00 IntakeIntake Total 1750 ml 2040 ml 2100 ml OutputOutput Total 50 ml 400 ml BalanceBalance 1750 ml 1990 ml 1700 ml Constitutional: alert, oriented, well developed Psych: no complaints, nl mood/affect Head: normocephalic, atraumatic Eyes: nl conjunctiva, nl lids ENMT: nl external ears & nose, nl nasal mucosa & septum, mucosa pink and moist Neck: other (not swollen) Respiratory: other (normal resp effort) Cardiovascular: No edema Gastrointestinal: soft Musculoskeletal: other (LUE in a sling, the surgical site of L shoulder is dressed) Extremities: No edema Neurological: HOT REPAIRMAN II-XII intact, nl mental status, nl speech, nl strength Skin: nl turgor; No rash or lesions Results Result Diagram: 12/27/1892612/27/18926 Results 24hrs Laboratory Tests Test 12/26/18 23:49 12/27/18 07:08 12/27/18 09:27 Erythrocyte Sedimentation Rate 53 H Lab Scanned Report REFERENCE LAB White Blood Count 9.7 # Red Blood Count 3.17 #L Hemoglobin 9.7 L Hematocrit 28.9 L Mean Corpuscular Volume 91.2 Mean Corpuscular Hemoglobin 30.6 Mean Corpuscular Hemoglobin Concent 33.6 Red Cell Distribution Width 12.3 Platelet Count 297 # Mean Platelet Volume 11.3 H Immature Granulocytes % 0.300 Neutrophils % 73.0 Lymphocytes % 18.6 Monocytes % 7.2 Eosinophils % 0.5 Basophils % 0.4 Nucleated Red Blood Cells % 0.0 Immature Granulocytes # 0.030 Neutrophils # 7.1 Lymphocytes # 1.8 Monocytes # 0.7 Eosinophils # 0.1 Basophils # 0.0 Nucleated Red Blood Cells # 0.0 Sodium Level 139 Potassium Level 3.9 Chloride Level 103 Carbon Dioxide Level 25 Anion Gap 11 Blood Urea Nitrogen 19 Creatinine 0.77 Est Glomerular Filtrat Rate mL/min > 60 Glucose Level 126 Calcium Level 9.0 Medications Medication Current Medications Magnesium Hydroxide (Milk Of Mag) 30 ml BID PRN PO CONSTIPATION; Start 12/26/18 at 16:30 Lactated Ringer's 1,000 ml @ 100 mls/hr Q10H IV Last administered on 12/27/18at 13:03; Admin Dose 100 MLS/HR; Start 12/26/18 at 16:19 Aspirin (Aspirin) 81 mg DAILY PO Last administered on 12/27/18at 08:40; Admin Dose 81 MG; Start 12/27/18 at 09:00 Hydromorphone HCl (Dilaudid) 1 mg Q3H PRN IV SEVERE PAIN LEVEL 7-10 Last administered on 12/27/18at 03:26; Admin Dose 1 MG; Start 12/26/18 at 16:30 Oxycodone HCl (Roxicodone) 15 mg Q4H PRN PO MODERATE PAIN LEVEL 4-6 Last administered on 12/27/18 13:03; Admin Dose 15 MG; Start 12/26/18 at 16:30 Amlodipine Besylate (Norvasc) 5 mg DAILY PO Last administered on 12/27/18 08:40; Admin Dose 5 MG; Start 12/27/18 at 09:00 Benazepril HCl (Lotensin) 20 mg DAILY PO Last administered on 12/27/18 08:39; Admin Dose 20 MG; Start 12/27/18 at 09:00 Hydralazine HCl (Apresoline) 10 mg Q4H PRN IV SBP >150; Start 12/26/18 at 17:30 Atorvastatin Calcium (Lipitor) 40 mg DAILY PO Last administered on 12/27/18 08:40; Admin Dose 40 MG; Start 12/27/18 at 09:00 Vancomycin HCl (Vanco Iv Per Pharmacy) VANCOMYCIN PER PHARMACY PER PROTOCOL XX ; Start 12/26/18 at 23:30 Vancomycin HCl 1.25 gm/Sodium Chloride 250 ml @ 83.333 mls/ hr Q12H IVPB Last administered on 12/27/18 13:24; Admin Dose 83.333 MLS/HR; Start 12/27/18 at 13:00 Cefepime HCl 50 ml @ 100 mls/hr Q8 IVPB Last administered on 12/27/18 13:03; Admin Dose 100 MLS/HR; Start 12/27/18 at 06:30 Ketorolac Tromethamine (Toradol) 15 mg Q6H PRN IV PAIN Last administered on 20:05; Admin Dose 15 MG; Start 12/27/18 at 06:30; Stop 12/30/18 at 06:29 Oxycodone HCl (Oxycontin) 20 mg BID PO Last administered on 12/27/18 20:58; Admin Dose 20 MG; Start 12/27/18 at 09:00 Gabapentin (Neurontin) 100 mg TID PO Last administered on 12/27/18 20:58; Admin Dose 100 MG; Start 12/27/18 at 09:00 Miscellaneous Information (*Rx Drug Level Order Reminder*) VANCO TROUGH @ 1,200 ON... 1200 ONCE XX ; Start 12/28/18 at 12:00; Stop 12/28/18 at 12:01 Trazodone HCl (Desyrel) 50 mg HS PRN PO insomnia; Start 12/27/18 at 09:00 LUI JUAN M.D. Dec 27, 2018 21:02
[2018-12-28] MEDS: VANCOMYCIN HCL 1.25 GM in SOD CHLORIDE 0.9% 250 ML IVPB SCH ×2 (01:21→14:54)
[2018-12-28 01:43] VITALS: BP 120/78; PULSE 75; RESP 18
[2018-12-28] MEDS: KETOROLAC 15 MG INJ IV PRN ×4 (02:11→22:29)
[2018-12-28] MEDS: oxyCODONE 15 MG TAB PO PRN ×2 (02:15→13:24)
[2018-12-28] MEDS: CEFEPIME 2GM/50 ML (PMX) 50 ML IVPB SCH ×3 (06:21→22:29)
[2018-12-28 07:53] VITALS: BP 135/66; PULSE 82; RESP 19
[2018-12-28] MEDS: ASPIRIN 81 MG TAB PO SCH (08:15)
[2018-12-28] MEDS: BENAZEPRIL 20 MG TAB PO SCH (08:15)
[2018-12-28] MEDS: ATORVASTATIN 40 MG TAB PO SCH (08:15)
[2018-12-28] MEDS: AMLODIPINE 5 MG TAB PO SCH (08:16)
[2018-12-28] MEDS: GABAPENTIN 100 MG CAP PO SCH ×3 (08:16→21:07)
[2018-12-28] MEDS: oxyCODONE (CR) 20 MG TAB [oxyCONTIN] PO SCH ×2 (08:17→21:07)
[2018-12-28] MEDS: LACTATED RINGER'S 1,000 ML IV SCH ×2 (08:19→18:19)
--- NOTE | 2018-12-28 09:09 | CONS ---
Assessment/Plan Assessment/Plan Hospital Course (Demo Recall) 68 yo M with PMH HTN, HLD, gastritis, BPH, thoracic aortic aneurysm, and left s houlder pain presented for elective L shoulder Irrigation, debridement of the left shoulder with polyethylene exchange and placement of antibiotic beads. POD #2 Assessment/Plan (Daily) 1. Left shoulder infection s/p elective L shoulder Irrigation, debridement of the left shoulder with polyethylene exchange and placement of antibiotic beads. POD #2 - post operative management per Ortho recommendations - ID consultation appreciate and awaiting culture results from left shoulder. All cultures negative to date. PICC line to be placed prior to discharge home - continue current pain control 2. HTN - stable - continue home medications 3. HLD - continue statin 4. h/o Thoracic AAA - has outpatient cardiology follow up 5. Insomnia - Trazodone PRN 6. Disposition - Per ID, awaiting culture results to determine final antibiotic recommendations Consultation Date/Type/Reason Admit Date/Time Dec 26, 2018 at 10:44 Initial Consult Date 12/26/18 Type of Consult Internal medicine Requesting Provider: DELMAR MALLOY Date/Time of Note DATE: 12/28/18 TIME: 09:09 24 HR Interval Summary Free Text/Dictation Patient states hes feeling better now that pain is controlled. Discussed PICC line placement as well. No acute overnight events. Exam/Review of Systems Exam Vitals Vital Signs Date Temp Pulse Resp B/P (MAP) Pulse Ox O2 O2 Flow FiO2 Time Delivery Rate 12/28/18 98.2 82 19 135/66 98 07:53 (89) 12/27/18 Nasal 2.0 08:59 Cannula Intake and Output 12/27/18 12/27/18 12/28/18 1515:00 23:00 07:00 IntakeIntake Total 650 ml 1830 ml 300 ml OutputOutput Total 2 ml BalanceBalance 650 ml 1828 ml 300 ml Exam General: ambulating around room without any issues. No acute distress Respiratory: Clear to auscultation bilaterally. no wheezing or rhonchi Cardiovascular: S1, S2, regular rhythm, tachycardia, no obvious murmurs Gastrointestinal: soft, non-tender to palpation, nondistended, bowel sounds heard. Neurological: Moves all extremities spontaneously Ext: left arm in sling Skin: No new skin lesions. dressing in place Results Result Diagram: 12/28/18 0443 12/27/18 0927 Results 24hrs Laboratory Tests Test 12/27/18 09:27 12/28/18 04:43 White Blood Count 9.7 # 7.3 # Red Blood Count 3.17 #L 3.13 L Hemoglobin 9.7 L 9.7 L Hematocrit 28.9 L 29.0 L Mean Corpuscular Volume 91.2 92.7 Mean Corpuscular Hemoglobin 30.6 31.0 Mean Corpuscular Hemoglobin Concent 33.6 33.4 Red Cell Distribution Width 12.3 12.6 Platelet Count 297 # 283 Mean Platelet Volume 11.3 H 10.6 H Immature Granulocytes % 0.300 0.400 Neutrophils % 73.0 65.1 Lymphocytes % 18.6 23.7 Monocytes % 7.2 7.8 Eosinophils % 0.5 2.6 Basophils % 0.4 0.4 Nucleated Red Blood Cells % 0.0 0.0 Immature Granulocytes # 0.030 0.030 Neutrophils # 7.1 4.7 Lymphocytes # 1.8 1.7 Monocytes # 0.7 0.6 Eosinophils # 0.1 0.2 Basophils # 0.0 0.0 Nucleated Red Blood Cells # 0.0 0.0 Sodium Level 139 Potassium Level 3.9 Chloride Level 103 Carbon Dioxide Level 25 Anion Gap 11 Blood Urea Nitrogen 19 Creatinine 0.77 Est Glomerular Filtrat Rate mL/min > 60 Glucose Level 126 Calcium Level 9.0 Medications Medication Current Medications Magnesium Hydroxide (Milk Of Mag) 30 ml BID PRN PO CONSTIPATION; Start 12/26/18 at 16:30 Lactated Ringer's 1,000 ml @ 100 mls/hr Q10H IV Last administered on 12/27/18at 13:03; Admin Dose 100 MLS/HR; Start 12/26/18 at 16:19 Aspirin (Aspirin) 81 mg DAILY PO Last administered on 12/28/18 08:15; Admin Dose 81 MG; Start 12/27/18 at 09:00 Hydromorphone HCl (Dilaudid) 1 mg Q3H PRN IV SEVERE PAIN LEVEL 7-10 Last administered on 12/27/18at 03:26; Admin Dose 1 MG; Start 12/26/18 at 16:30 Oxycodone HCl (Roxicodone) 15 mg Q4H PRN PO MODERATE PAIN LEVEL 4-6 Last administered on 4/6/19at 02:15; Admin Dose 15 MG; Start 12/26/18 at 16:30 Amlodipine Besylate (Norvasc) 5 mg DAILY PO Last administered on 12/28/18 08:16; Admin Dose 5 MG; Start 12/27/18 at 09:00 Benazepril HCl (Lotensin) 20 mg DAILY PO Last administered on 12/28/18 08:15; Admin Dose 20 MG; Start 12/27/18 at 09:00 Hydralazine HCl (Apresoline) 10 mg Q4H PRN IV SBP >150; Start 12/26/18 at 17:30 Atorvastatin Calcium (Lipitor) 40 mg DAILY PO Last administered on 12/28/18 08:15; Admin Dose 40 MG; Start 12/27/18 at 09:00 Vancomycin HCl (Vanco Iv Per Pharmacy) VANCOMYCIN PER PHARMACY PER PROTOCOL XX ; Start 12/26/18 at 23:30 Vancomycin HCl 1.25 gm/Sodium Chloride 250 ml @ 83.333 mls/ hr Q12H IVPB Last administered on 12/28/18at 01:21; Admin Dose 83.333 MLS/HR; Start 12/27/18 at 13:00 Cefepime HCl 50 ml @ 100 mls/hr Q8 IVPB Last administered on 12/28/18 06:21; Admin Dose 100 MLS/HR; Start 12/27/18 at 06:30 Ketorolac Tromethamine (Toradol) 15 mg Q6H PRN IV PAIN Last administered on 12/28/18 08:24; Admin Dose 15 MG; Start 12/27/18 at 06:30; Stop 12/30/18 at 06:29 Oxycodone HCl (Oxycontin) 20 mg BID PO Last administered on 12/28/18 08:17; Admin Dose 20 MG; Start 12/27/18 at 09:00 Gabapentin (Neurontin) 100 mg TID PO Last administered on 12/28/18 08:16; Admin Dose 100 MG; Start 12/27/18 at 09:00 Miscellaneous Information (*Rx Drug Level Order Reminder*) VANCO TROUGH @ 1,200 ON... 1200 ONCE XX ; Start 12/28/18 at 12:00; Stop 12/28/18 at 12:01 Trazodone HCl (Desyrel) 50 mg HS PRN PO insomnia; Start 12/27/18 at 09:00 DEANA FLORES MD Dec 28, 2018 09:09
--- NOTE | 2018-12-28 12:22 | PN ---
Date/Time of Note Date/Time of Note DATE: 12/28/18 TIME: 12:19 Assessment/Plan Lines/Catheters IV Catheter Type (from Nrsg): Peripheral IV Po[place] in Place (from Nrsg): No Assessment/Plan Assessment/Plan 68-year-old male with a prosthetic joint infection involving the left shoulder replacement. He will need 6 weeks of IV antibiotics. The potential for two-stage revision was discussed with the patient. PICC line will be ordered today and the patient will be discharged home in the next 1-2 days once his antibiotics are stabilized. He also has difficulty with pain control and will be discharged home once he is stable on oral pain medication Subjective 24 Hr Interval Summary The patient is stable after left shoulder I&D for infection. He is currently on IV antibiotics. Pain is finally controlled with the IV and oral pain medication. With the patient states that he is looking forward to going home Exam/Review of Systems Vital Signs Vitals Vital Signs Date Temp Pulse Resp B/P (MAP) Pulse Ox O2 O2 Flow FiO2 Time Delivery Rate 12/28/18 98.2 82 19 135/66 98 07:53 (89) 12/27/18 Nasal 2.0 08:59 Cannula Intake and Output 12/27/18 12/27/18 12/28/18 1414:59 22:59 06:59 IntakeIntake Total 650 ml 1830 ml 300 ml OutputOutput Total 2 ml BalanceBalance 650 ml 1828 ml 300 ml Exam Free Text/Dictation Examination shows a pleasant but anxious male. The left shoulder dressing is intact. There is no neurovascular deficit. Range of motion is limited. Results Result Diagram: 12/28/18 0443 12/27/18 0927 [facility] Dec 28, 2018 12:22
[2018-12-28] MEDS ORDERED: LIDOCAINE 1% (MPF) 5 ML VIAL SC ONE (12:30)
[2018-12-28 15:02] VITALS: BP 121/62; RESP 18
[2018-12-28 19:53] VITALS: BP 119/77; PULSE 77; RESP 18
--- NOTE | 2018-12-28 22:27 | CONS ---
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 The cultures may be negative thanks to several doses of PO cephalexin which he took on 12/19/2018 and 12/20/2018, blood cultures - continue IV vancomycin and cefepime (12/26/2018-). will adjust the antibiotics based on the final culture results. I recommend 6 weeks of antibiotic(s) via PICC. please order weekly CBC and BMP while Pt's on IV antibiotics management d/w Pt, his RN Alice Consultation Date/Type/Reason Admit Date/Time Dec 26, 2018 at 10:44 Initial Consult Date 12/26/18 Type of Consult ID Reason for Consultation PJI of L shoulder Requesting Provider: DELMAR MALLOY Date/Time of Note DATE: 12/28/18 TIME: 22:24 24 HR Interval Summary Constitutional: improved (better pain control with IV meds) Detailed Summary Eyes: no complaints ENT: no complaints Respiratory: no complaints Cardiovascular: no complaints Gastrointestinal: no complaints Genitourinary: no complaints Musculoskeletal: bone/joint pain (less pain of L shoulder), restricted range of motion Skin: no complaints Neurologic: no complaints Exam/Review of Systems Exam Vitals Vital Signs Date Temp Pulse Resp B/P (MAP) Pulse Ox O2 O2 Flow FiO2 Time Delivery Rate 12/28/18 97.8 77 18 119/77 97 19:53 (91) 12/27/18 Nasal 2.0 08:59 Cannula Intake and Output 12/27/18 12/27/18 12/28/18 1515:00 23:00 07:00 IntakeIntake Total 650 ml 1830 ml 300 ml OutputOutput Total 2 ml BalanceBalance 650 ml 1828 ml 300 ml Constitutional: alert, oriented, well developed Psych: no complaints, nl mood/affect Head: normocephalic, atraumatic Eyes: nl conjunctiva, nl lids, nl sclera ENMT: nl external ears & nose, nl nasal mucosa & septum, mucosa pink and moist Neck: other (not swollen) Respiratory: normal air movement Cardiovascular: No edema Gastrointestinal: soft; No distended Musculoskeletal: range of motion (limited at L shoulder) Extremities: No edema Neurological: HISTOLOGIST TECHNOLOGIST II-XII intact, nl mental status, nl speech, nl strength Skin: nl turgor; No rash or lesions Results Result Diagram: 12/28/18 0443 12/27/18 0927 Results 24hrs Laboratory Tests Test 12/28/18 04:43 12/28/18 12:35 White Blood Count 7.3 # Red Blood Count 3.13 L Hemoglobin 9.7 L Hematocrit 29.0 L Mean Corpuscular Volume 92.7 Mean Corpuscular Hemoglobin 31.0 Mean Corpuscular Hemoglobin Concent 33.4 Red Cell Distribution Width 12.6 Platelet Count 283 Mean Platelet Volume 10.6 H Immature Granulocytes % 0.400 Neutrophils % 65.1 Lymphocytes % 23.7 Monocytes % 7.8 Eosinophils % 2.6 Basophils % 0.4 Nucleated Red Blood Cells % 0.0 Immature Granulocytes # 0.030 Neutrophils # 4.7 Lymphocytes # 1.7 Monocytes # 0.6 Eosinophils # 0.2 Basophils # 0.0 Nucleated Red Blood Cells # 0.0 Vancomycin Level Trough 17.5 Medications Medication Current Medications Magnesium Hydroxide (Milk Of Mag) 30 ml BID PRN PO CONSTIPATION; Start 12/26/18 at 16:30 Lactated Ringer's 1,000 ml @ 100 mls/hr Q10H IV Last administered on 12/27/18at 13:03; Admin Dose 100 MLS/HR; Start 12/26/18 at 16:19 Aspirin (Aspirin) 81 mg DAILY PO Last administered on 12/28/18at 08:15; Admin Dose 81 MG; Start 12/27/18 at 09:00 Hydromorphone HCl (Dilaudid) 1 mg Q3H PRN IV SEVERE PAIN LEVEL 7-10 Last administered on 12/27/18at 03:26; Admin Dose 1 MG; Start 12/26/18 at 16:30 Oxycodone HCl (Roxicodone) 15 mg Q4H PRN PO MODERATE PAIN LEVEL 4-6 Last administered on 12/28/18at 13:24; Admin Dose 15 MG; Start 12/26/18 at 16:30 Amlodipine Besylate (Norvasc) 5 mg DAILY PO Last administered on 12/28/18 08:16; Admin Dose 5 MG; Start 12/27/18 at 09:00 Benazepril HCl (Lotensin) 20 mg DAILY PO Last administered on 12/28/18 08:15; Admin Dose 20 MG; Start 12/27/18 at 09:00 Hydralazine HCl (Apresoline) 10 mg Q4H PRN IV SBP >150; Start 12/26/18 at 17:30 Atorvastatin Calcium (Lipitor) 40 mg DAILY PO Last administered on 12/28/18 08:15; Admin Dose 40 MG; Start 12/27/18 at 09:00 Vancomycin HCl (Vanco Iv Per Pharmacy) VANCOMYCIN PER PHARMACY PER PROTOCOL XX ; Start 12/26/18 at 23:30 Cefepime HCl 50 ml @ 100 mls/hr Q8 IVPB Last administered on 12/28/18 13:25; Admin Dose 100 MLS/HR; Start 12/27/18 at 06:30 Ketorolac Tromethamine (Toradol) 15 mg Q6H PRN IV PAIN Last administered on 12/28/18 16:03; Admin Dose 15 MG; Start 12/27/18 at 06:30; Stop 12/30/18 at 06:29 Oxycodone HCl (Oxycontin) 20 mg BID PO Last administered on 12/28/18 21:07; Admin Dose 20 MG; Start 12/27/18 at 09:00 Gabapentin (Neurontin) 100 mg TID PO Last administered on 12/28/18 21:07; Admin Dose 100 MG; Start 12/27/18 at 09:00 Trazodone HCl (Desyrel) 50 mg HS PRN PO insomnia; Start 12/27/18 at 09:00 Vancomycin HCl 250 ml @ 125 mls/hr Q12H IVPB ; Start 12/29/18 at 02:00 LUI JUAN M.D. Dec 28, 2018 22:27
[2018-12-29] MEDS: oxyCODONE 15 MG TAB PO PRN ×3 (00:09→18:37)
[2018-12-29 02:04] VITALS: BP 116/75; PULSE 75; RESP 17
[2018-12-29] MEDS: VANCOMYCIN 1 GM 250 ML IVPB SCH ×2 (02:05→15:16)
[2018-12-29] MEDS: LACTATED RINGER'S 1,000 ML IV SCH ×2 (04:19→14:19)
[2018-12-29] MEDS: KETOROLAC 15 MG INJ IV PRN ×2 (04:58→11:55)
[2018-12-29] MEDS: CEFEPIME 2GM/50 ML (PMX) 50 ML IVPB SCH ×4 (05:56→21:40)
[2018-12-29 07:12] VITALS: BP 121/75; PULSE 76; RESP 14
[2018-12-29] MEDS: ASPIRIN 81 MG TAB PO SCH (09:04)
[2018-12-29] MEDS: ATORVASTATIN 40 MG TAB PO SCH (09:04)
[2018-12-29] MEDS: oxyCODONE (CR) 20 MG TAB [oxyCONTIN] PO SCH ×2 (09:05→20:34)
[2018-12-29] MEDS: GABAPENTIN 100 MG CAP PO SCH ×3 (09:05→20:34)
[2018-12-29] MEDS: AMLODIPINE 5 MG TAB PO SCH (09:06)
[2018-12-29] MEDS: BENAZEPRIL 20 MG TAB PO SCH (09:06)
--- NOTE | 2018-12-29 09:08 | PN ---
Date/Time of Note Date/Time of Note DATE: 12/29/18 TIME: 09:08 Assessment/Plan VTE Prophylaxis Risk score (from Ns)>0 risk: 2 SCD applied (from Ns): Yes Lines/Catheters IV [facility]from [facility] [place] [facility] Urinary Cath still in place: No Assessment/Plan Result Diagram: 12/29/18 0443 12/29/18 0443 Results 24hrs Laboratory Tests Test 12/28/18 12:35 12/29/18 04:43 Vancomycin Level Trough 17.5 White Blood Count 7.4 Red Blood Count 3.35 L Hemoglobin 10.3 L Hematocrit 30.8 L Mean Corpuscular Volume 91.9 Mean Corpuscular Hemoglobin 30.7 Mean Corpuscular Hemoglobin Concent 33.4 Red Cell Distribution Width 12.4 Platelet Count 328 Mean Platelet Volume 11.1 H Immature Granulocytes % 0.500 H Neutrophils % 57.2 Lymphocytes % 28.9 Monocytes % 8.0 Eosinophils % 4.6 Basophils % 0.8 Nucleated Red Blood Cells % 0.0 Immature Granulocytes # 0.040 H Neutrophils # 4.2 Lymphocytes # 2.1 Monocytes # 0.6 Eosinophils # 0.3 Basophils # 0.1 Nucleated Red Blood Cells # 0.0 Blood Urea Nitrogen 21 H Creatinine 0.92 Exam/Review of Systems Exam Vitals Vital Signs Date Temp Pulse Resp B/P (MAP) Pulse Ox O2 O2 Flow FiO2 Time Delivery Rate 12/29/18 98.6 76 14 121/75 100 Room Air 07:12 (90) 12/27/18 2.0 08:59 Intake and Output 12/28/18 12/28/18 12/29/18 1515:00 23:00 07:00 IntakeIntake Total 100 ml 1450 ml 500 ml BalanceBalance 100 ml 1450 ml 500 ml Results Results 24hrs Laboratory Tests Test 12/28/18 12:35 12/29/18 04:43 Vancomycin Level Trough 17.5 White Blood Count 7.4 Red Blood Count 3.35 L Hemoglobin 10.3 L Hematocrit 30.8 L Mean Corpuscular Volume 91.9 Mean Corpuscular Hemoglobin 30.7 Mean Corpuscular Hemoglobin Concent 33.4 Red Cell Distribution Width 12.4 Platelet Count 328 Mean Platelet Volume 11.1 H Immature Granulocytes % 0.500 H Neutrophils % 57.2 Lymphocytes % 28.9 Monocytes % 8.0 Eosinophils % 4.6 Basophils % 0.8 Nucleated Red Blood Cells % 0.0 Immature Granulocytes # 0.040 H Neutrophils # 4.2 Lymphocytes # 2.1 Monocytes # 0.6 Eosinophils # 0.3 Basophils # 0.1 Nucleated Red Blood Cells # 0.0 Blood Urea Nitrogen 21 H Creatinine 0.92 Medications Medication Current Medications Magnesium Hydroxide (Milk Of Mag) 30 ml BID PRN PO CONSTIPATION; Start 12/26/18 at 16:30 Lactated Ringer's 1,000 ml @ 100 mls/hr Q10H IV Last administered on 12/27/18 13:03; Admin Dose 100 MLS/HR; Start 12/26/18 at 16:19 Aspirin (Aspirin) 81 mg DAILY PO Last administered on 12/28/18 08:15; Admin Dose 81 MG; Start 12/27/18 at 09:00 Hydromorphone HCl (Dilaudid) 1 mg Q3H PRN IV SEVERE PAIN LEVEL 7-10 Last admini stered on 12/27/18 03:26; Admin Dose 1 MG; Start 12/26/18 at 16:30 Oxycodone HCl (Roxicodone) 15 mg Q4H PRN PO MODERATE PAIN LEVEL 4-6 Last administered on 12/29/18 05:56; Admin Dose 15 MG; Start 12/26/18 at 16:30 Amlodipine Besylate (Norvasc) 5 mg DAILY PO Last administered on 12/28/18 08:16; Admin Dose 5 MG; Start 12/27/18 at 09:00 Benazepril HCl (Lotensin) 20 mg DAILY PO Last administered on 12/28/18 08:15; Admin Dose 20 MG; Start 12/27/18 at 09:00 Hydralazine HCl (Apresoline) 10 mg Q4H PRN IV SBP >150; Start 12/26/18 at 17:30 Atorvastatin Calcium (Lipitor) 40 mg DAILY PO Last administered on 12/28/18 08:15; Admin Dose 40 MG; Start 12/27/18 at 09:00 Vancomycin HCl (Vanco Iv Per Pharmacy) VANCOMYCIN PER PHARMACY PER PROTOCOL XX ; Start 12/26/18 at 23:30 Cefepime HCl 50 ml @ 100 mls/hr Q8 IVPB Last administered on 12/28/18 22:29; Admin Dose 100 MLS/HR; Start 12/27/18 at 06:30 Ketorolac Tromethamine (Toradol) 15 mg Q6H PRN IV PAIN Last administered on 12/29/18at 04:58; Admin Dose 15 MG; Start 12/27/18 at 06:30; Stop 12/30/18 at 06:29 Oxycodone HCl (Oxycontin) 20 mg BID PO Last administered on 12/28/18 21:07; Admin Dose 20 MG; Start 12/27/18 at 09:00 Gabapentin (Neurontin) 100 mg TID PO Last administered on 12/28/18at 21:07; Admin Dose 100 MG; Start 12/27/18 at 09:00 Trazodone HCl (Desyrel) 50 mg HS PRN PO insomnia; Start 12/27/18 at 09:00 Vancomycin HCl 250 ml @ 125 mls/hr Q12H IVPB Last administered on 12/29/18 02:05; Admin Dose 125 MLS/HR; Start 12/29/18 at 02:00 DEANA FLORES MD Dec 29, 2018 09:08
[2018-12-29] MEDS: MAGNESIUM HYDROXIDE 30ML CUP PO PRN (14:25)
--- NOTE | 2018-12-29 14:56 | CONS ---
Assessment/Plan Assessment/Plan Hospital Course (Demo Recall) 68 yo M with PMH HTN, HLD, gastritis, BPH, thoracic aortic aneurysm, and left s houlder pain presented for elective L shoulder Irrigation, debridement of the left shoulder with polyethylene exchange and placement of antibiotic beads. POD #3 Assessment/Plan (Daily) 1. Left shoulder infection s/p elective L shoulder Irrigation, debridement of the left shoulder with polyethylene exchange and placement of antibiotic beads. POD #3 - post operative management per Ortho recommendations - ID consultation appreciate and awaiting culture results from left shoulder. All cultures negative to date. - continue current pain control 2. HTN - stable - continue home medications 3. HLD - continue statin 4. h/o Thoracic AAA - has outpatient cardiology follow up 5. Insomnia - Trazodone PRN 6. Disposition - Per ID, awaiting culture results to determine final antibiotic recommendations Consultation Date/Type/Reason Admit Date/Time Dec 26, 2018 at 10:44 Initial Consult Date 12/26/18 Type of Consult Internal medicine Requesting Provider: DELMAR MALLOY Date/Time of Note DATE: 12/29/18 TIME: 14:53 24 HR Interval Summary Free Text/Dictation Patient states he's feeling better daily and denies any acute issues. No overnight events. Exam/Review of Systems Exam Vitals Vital Signs Date Temp Pulse Resp B/P (MAP) Pulse Ox O2 O2 Flow FiO2 Time Delivery Rate 12/29/18 98.6 76 14 121/75 100 Room Air 07:12 (90) 12/27/18 2.0 08:59 Intake and Output 12/28/18 12/28/18 12/29/18 1414:59 22:59 06:59 IntakeIntake Total 100 ml 1450 ml 500 ml BalanceBalance 100 ml 1450 ml 500 ml Exam General: Ambulating around room without any issues. No acute distress Respiratory: Clear to auscultation bilaterally. no wheezing or rhonchi Cardiovascular: S1, S2, regular rhythm and rate, no obvious murmurs Gastrointestinal: soft, non-tender to palpation, nondistended, bowel sounds heard. Neurological: Moves all extremities spontaneously Ext: left arm in sling Skin: No new skin lesions. dressing in place Results Result Diagram: 12/29/18 0443 12/29/183 Results 24hrs Laboratory Tests Test 12/29/18 04:43 White Blood Count 7.4 Red Blood Count 3.35 L Hemoglobin 10.3 L Hematocrit 30.8 L Mean Corpuscular Volume 91.9 Mean Corpuscular Hemoglobin 30.7 Mean Corpuscular Hemoglobin Concent 33.4 Red Cell Distribution Width 12.4 Platelet Count 328 Mean Platelet Volume 11.1 H Immature Granulocytes % 0.500 H Neutrophils % 57.2 Lymphocytes % 28.9 Monocytes % 8.0 Eosinophils % 4.6 Basophils % 0.8 Nucleated Red Blood Cells % 0.0 Immature Granulocytes # 0.040 H Neutrophils # 4.2 Lymphocytes # 2.1 Monocytes # 0.6 Eosinophils # 0.3 Basophils # 0.1 Nucleated Red Blood Cells # 0.0 Blood Urea Nitrogen 21 H Creatinine 0.92 Medications Medication Current Medications Magnesium Hydroxide (Milk Of Mag) 30 ml BID PRN PO CONSTIPATION Last adm inistered on 12/29/18 14:25; Admin Dose 30 ML; Start 12/26/18 at 16:30 Lactated Ringer's 1,000 ml @ 100 mls/hr Q10H IV Last administered on 12/27/18 13:03; Admin Dose 100 MLS/HR; Start 12/26/18 at 16:19 Aspirin (Aspirin) 81 mg DAILY PO Last administered on 12/29/18 09:04; Admin Dose 81 MG; Start 12/27/18 at 09:00 Hydromorphone HCl (Dilaudid) 1 mg Q3H PRN IV SEVERE PAIN LEVEL 7-10 Last administered on 12/27/18 03:26; Admin Dose 1 MG; Start 12/26/18 at 16:30 Oxycodone HCl (Roxicodone) 15 mg Q4H PRN PO MODERATE PAIN LEVEL 4-6 Last administered on 12/29/18 05:56; Admin Dose 15 MG; Start 12/26/18 at 16:30 Amlodipine Besylate (Norvasc) 5 mg DAILY PO Last administered on 12/29/18 09:06; Admin Dose 5 MG; Start 12/27/18 at 09:00 Benazepril HCl (Lotensin) 20 mg DAILY PO Last administered on 12/29/18 09:06; Admin Dose 20 MG; Start 12/27/18 at 09:00 Hydralazine HCl (Apresoline) 10 mg Q4H PRN IV SBP >150; Start 12/26/18 at 17:30 Atorvastatin Calcium (Lipitor) 40 mg DAILY PO Last administered on 12/29/18at 09:04; Admin Dose 40 MG; Start 12/27/18 at 09:00 Vancomycin HCl (Vanco Iv Per Pharmacy) VANCOMYCIN PER PHARMACY PER PROTOCOL XX ; Start 12/26/18 at 23:30 Cefepime HCl 50 ml @ 100 mls/hr Q8 IVPB Last administered on 12/29/18at 14:17; Admin Dose 100 MLS/HR; Start 12/27/18 at 06:30 Ketorolac Tromethamine (Toradol) 15 mg Q6H PRN IV PAIN Last administered on 12/29/18at 11:55; Admin Dose 15 MG; Start 12/27/18 at 06:30; Stop 12/30/18 at 06:29 Oxycodone HCl (Oxycontin) 20 mg BID PO Last administered on 12/29/18at 09:05; Admin Dose 20 MG; Start 12/27/18 at 09:00 Gabapentin (Neurontin) 100 mg TID PO Last administered on 12/29/18at 14:17; Admin Dose 100 MG; Start 12/27/18 at 09:00 Trazodone HCl (Desyrel) 50 mg HS PRN PO insomnia; Start 12/27/18 at 09:00 Vancomycin HCl 250 ml @ 125 mls/hr Q12H IVPB Last administered on 12/29/18at 02:05; Admin Dose 125 MLS/HR; Start 12/29/18 at 02:00 Miscellaneous Information (*Rx Drug Level Order Reminder*) VANCO TR LEVEL PRIOR... 1300 ONCE XX ; Start 12/30/18 at 13:00; Stop 12/30/18 at 13:01 DEANA FLORES MD Dec 29, 2018 14:56
[2018-12-29 15:22] VITALS: BP 132/66; PULSE 66; RESP 16
--- NOTE | 2018-12-29 18:07 | CONS ---
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 The cultures may be negative thanks to several doses of PO cephalexin which he took on 12/19/2018 and 12/20/2018, blood cultures - I recommend IV vancomycin and cefepime (12/26/2018-) x 6 weeks through 02/06/2019. please order weekly CBC, BMP, ESR while Pt's on IV antibiotics. Side effects were explained to Pt (so far none reported) - Nelda from the radiology department could only place a midline in his RUE today. I do not recommend using a midline for 6 weeks. Pt needs a catheter that is suitable for a 6 week course of IV infusion or make an appointment at the [facility] radiology department to exchange this midline with a PICC in approximately 2 weeks - I'd like to see him in the office in 1-2 weeks after discharge; will request authorization for his office visits management d/w Pt, his RN Germania the total time I took to care for this Pt today was 40 min Consultation Date/Type/Reason Admit Date/Time Dec 26, 2018 at 10:44 Initial Consult Date 12/26/18 Type of Consult ID Requesting Provider: DELMAR MALLOY Date/Time of Note DATE: 12/29/18 TIME: 17:44 Detailed Summary Eyes: no complaints ENT: no complaints Respiratory: no complaints Cardiovascular: no complaints Gastrointestinal: no complaints Genitourinary: no complaints Musculoskeletal: bone/joint pain (L shoulder), restricted range of motion Skin: no complaints Exam/Review of Systems Exam Vitals Vital Signs Date Temp Pulse Resp B/P (MAP) Pulse Ox O2 O2 Flow FiO2 Time Delivery Rate 12/29/18 98.5 66 16 132/66 100 Room Air 15:22 (88) 12/27/18 2.0 08:59 Intake and Output 12/28/18 12/28/18 12/29/18 1515:00 23:00 07:00 IntakeIntake Total 100 ml 1450 ml 500 ml BalanceBalance 100 ml 1450 ml 500 ml Constitutional: alert, oriented, well developed Psych: no complaints, nl mood/affect Head: normocephalic, atraumatic Eyes: nl conjunctiva, nl lids, nl sclera ENMT: nl external ears & nose, nl nasal mucosa & septum, mucosa pink and moist Neck: other (not swollen) Respiratory: normal air movement Cardiovascular: No edema Gastrointestinal: No distended Musculoskeletal: other (LUE in a sling) Neurological: RESERVATIONS SALES AGENT II-XII intact, nl mental status, nl speech Skin: nl turgor Results Result Diagram: 12/29/1844212/29/18442 Results 24hrs Laboratory Tests Test 12/29/18 04:43 White Blood Count 7.4 Red Blood Count 3.35 L Hemoglobin 10.3 L Hematocrit 30.8 L Mean Corpuscular Volume 91.9 Mean Corpuscular Hemoglobin 30.7 Mean Corpuscular Hemoglobin Concent 33.4 Red Cell Distribution Width 12.4 Platelet Count 328 Mean Platelet Volume 11.1 H Immature Granulocytes % 0.500 H Neutrophils % 57.2 Lymphocytes % 28.9 Monocytes % 8.0 Eosinophils % 4.6 Basophils % 0.8 Nucleated Red Blood Cells % 0.0 Immature Granulocytes # 0.040 H Neutrophils # 4.2 Lymphocytes # 2.1 Monocytes # 0.6 Eosinophils # 0.3 Basophils # 0.1 Nucleated Red Blood Cells # 0.0 Blood Urea Nitrogen 21 H Creatinine 0.92 Medications Medication Current Medications Magnesium Hydroxide (Milk Of Mag) 30 ml BID PRN PO CONSTIPATION Last administered on 12/29/18at 14:25; Admin Dose 30 ML; Start 12/26/18 at 16:30 Lactated Ringer's 1,000 ml @ 100 mls/hr Q10H IV Last administered on 12/27/18at 13:03; Admin Dose 100 MLS/HR; Start 12/26/18 at 16:19 Aspirin (Aspirin) 81 mg DAILY PO Last administered on 12/29/18at 09:04; Admin Dose 81 MG; Start 12/27/18 at 09:00 Hydromorphone HCl (Dilaudid) 1 mg Q3H PRN IV SEVERE PAIN LEVEL 7-10 Last administered on 12/27/18 03:26; Admin Dose 1 MG; Start 12/26/18 at 16:30 Oxycodone HCl (Roxicodone) 15 mg Q4H PRN PO MODERATE PAIN LEVEL 4-6 Last administered on 12/29/18 05:56; Admin Dose 15 MG; Start 12/26/18 at 16:30 Amlodipine Besylate (Norvasc) 5 mg DAILY PO Last administered on 12/29/18 09:0 6; Admin Dose 5 MG; Start 12/27/18 at 09:00 Benazepril HCl (Lotensin) 20 mg DAILY PO Last administered on 12/29/18 09:06; Admin Dose 20 MG; Start 12/27/18 at 09:00 Hydralazine HCl (Apresoline) 10 mg Q4H PRN IV SBP >150; Start 12/26/18 at 17:30 Atorvastatin Calcium (Lipitor) 40 mg DAILY PO Last administered on 12/29/18 09:04; Admin Dose 40 MG; Start 12/27/18 at 09:00 Vancomycin HCl (Vanco Iv Per Pharmacy) VANCOMYCIN PER PHARMACY PER PROTOCOL XX ; Start 12/26/18 at 23:30 Cefepime HCl 50 ml @ 100 mls/hr Q8 IVPB Last administered on 12/29/18 14:17; Admin Dose 100 MLS/HR; Start 12/27/18 at 06:30 Ketorolac Tromethamine (Toradol) 15 mg Q6H PRN IV PAIN Last administered on 12/29/18 11:55; Admin Dose 15 MG; Start 12/27/18 at 06:30; Stop 12/30/18 at 06:29 Oxycodone HCl (Oxycontin) 20 mg BID PO Last administered on 12/29/18 09:05; Admin Dose 20 MG; Start 12/27/18 at 09:00 Gabapentin (Neurontin) 100 mg TID PO Last administered on 12/29/18 14:17; Admin Dose 100 MG; Start 12/27/18 at 09:00 Trazodone HCl (Desyrel) 50 mg HS PRN PO insomnia; Start 12/27/18 at 09:00 Vancomycin HCl 250 ml @ 125 mls/hr Q12H IVPB Last administered on 12/29/18at 15:16; Admin Dose 125 MLS/HR; Start 12/29/18 at 02:00 Miscellaneous Information (*Rx Drug Level Order Reminder*) VANCO TR LEVEL PRIOR... 1300 ONCE XX ; Start 12/30/18 at 13:00; Stop 12/30/18 at 13:01 LUI JUAN M.D. Dec 29, 2018 17:56
[2018-12-29 20:00] VITALS: BP 146/67; PULSE 79; RESP 18
[2018-12-29] MEDS: NAPROXEN 500 MG TAB PO SCH (20:34)
[2018-12-30] MEDS: LACTATED RINGER'S 1,000 ML IV SCH ×2 (00:19→10:19)
[2018-12-30] MEDS: oxyCODONE 15 MG TAB PO PRN ×6 (00:50→22:19)
[2018-12-30 00:55] VITALS: BP 138/80; PULSE 73; RESP 18
[2018-12-30] MEDS: VANCOMYCIN 1 GM 250 ML IVPB SCH ×2 (01:52→15:13)
[2018-12-30] MEDS: CEFEPIME 2GM/50 ML (PMX) 50 ML IVPB SCH ×3 (05:17→21:02)
[2018-12-30 07:48] VITALS: BP 150/71; PULSE 66; RESP 18
[2018-12-30] MEDS: ATORVASTATIN 40 MG TAB PO SCH (08:30)
[2018-12-30] MEDS: ASPIRIN 81 MG TAB PO SCH (08:30)
[2018-12-30] MEDS: BENAZEPRIL 20 MG TAB PO SCH (08:31)
[2018-12-30] MEDS: GABAPENTIN 100 MG CAP PO SCH ×3 (08:32→21:01)
[2018-12-30] MEDS: NAPROXEN 500 MG TAB PO SCH ×2 (08:32→21:01)
[2018-12-30] MEDS: AMLODIPINE 5 MG TAB PO SCH (08:32)
[2018-12-30] MEDS: oxyCODONE (CR) 20 MG TAB [oxyCONTIN] PO SCH (08:33)
--- NOTE | 2018-12-30 09:16 | CONS ---
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 The cultures may be negative thanks to several doses of PO cephalexin which he took on 12/19/2018 and 12/20/2018, blood cultures (NGTD) - We recommend IV vancomycin and cefepime (12/26/2018-) x 6 weeks through 02/06/2019. please order weekly CBC, BMP, ESR while Pt's on IV antibiotics. Side effects were explained to Pt (so far none reported) - Nelda from the radiology department could only place a midline in his RUE today. We do not recommend using a midline for 6 weeks. Pt needs a catheter that is suitable for a 6 week course of IV infusion or make an appointment at the [facility] radiology department to exchange this midline with a PICC in approximately 2 weeks - We would like to see him in the office in 1-2 weeks after discharge; will request authorization for his office visits Management d/w patient and with Dr. Lewis. Thank you Consultation Date/Type/Reason Admit Date/Time Dec 26, 2018 at 10:44 Initial Consult Date 12/26/18 Type of Consult ID Requesting Provider: DELMAR MALLOY Date/Time of Note DATE: 12/30/18 TIME: 09:13 24 HR Interval Summary Free Text/Dictation Per d/w patient, "I'm doing fine," he states pain is a 2-3/10 in left shoulder, max has been 5/10. Denied all other ROS. States he's waiting for corrections caseworker to come speak to him sometime today regarding potential transfer or discharge. Patient has remained afebrile and no acute issues were reported by nursing. Exam/Review of Systems Exam Vitals Vital Signs Date Temp Pulse Resp B/P (MAP) Pulse Ox O2 O2 Flow FiO2 Time Delivery Rate 12/30/18 97.6 66 18 150/71 95 Room Air 07:48 (97) 12/27/18 2.0 08:59 Intake and Output 12/29/18 12/29/18 12/30/18 1515:00 23:00 07:00 IntakeIntake Total 360 ml 1420 ml 300 ml BalanceBalance 360 ml 1420 ml 300 ml Allergies Coded Allergies No Known Allergy (Unverified12/26/18) Constitutional: alert, oriented, well developed Psych: no complaints, nl mood/affect Head: normocephalic, atraumatic Eyes: nl conjunctiva, nl lids, nl sclera ENMT: nl external ears & nose, nl nasal mucosa & septum, mucosa pink and moist (no thrush) Neck: supple, non-tender Respiratory: clear to auscultation, normal air movement; No wheezing Cardiovascular: regular rate and rhythm, nl pulses Gastrointestinal: soft, non-tender, bowel sounds (normoactive) Musculoskeletal: other (LUE in sling. ) Extremities: normal pulses; No edema Neurological: SUPERVISOR SIGN SHOP II-XII intact, nl mental status, nl speech, nl strength Skin: nl turgor, other (Left anterior shoulder with a dressing covering (original surgical), there is some dried sanguinous drainage noted on the dressing. ); No rash or lesions Results Result Diagram: 12/30/18 0430 12/29/18 0443 Results 24hrs Laboratory Tests Test 12/30/18 04:30 White Blood Count 6.3 Red Blood Count 3.41 L Hemoglobin 10.5 L Hematocrit 31.6 L Mean Corpuscular Volume 92.7 Mean Corpuscular Hemoglobin 30.8 Mean Corpuscular Hemoglobin Concent 33.2 Red Cell Distribution Width 12.4 Platelet Count 323 Mean Platelet Volume 11.6 H Immature Granulocytes % 0.500 H Neutrophils % 58.0 Lymphocytes % 29.0 Monocytes % 6.2 Eosinophils % 5.3 Basophils % 1.0 Nucleated Red Blood Cells % 0.0 Immature Granulocytes # 0.030 Neutrophils # 3.6 Lymphocytes # 1.8 Monocytes # 0.4 Eosinophils # 0.3 Basophils # 0.1 Nucleated Red Blood Cells # 0.0 Imaging Imaging CXR 12/29/18 FINDINGS: There is a new right-sided PICC line in place with its tip extending towards the right jugular vein. The heart, mediastinum, and lungs are unchanged. The heart is normal in size. The lungs are clear. There is evidence of left shoulder replacement. RPTAT: AA IMPRESSION: New PICC line with its tip extending towards the right jugular vein. Medications Medication Current Medications Magnesium Hydroxide (Milk Of Mag) 30 ml BID PRN PO CONSTIPATION Last administered on 12/29/18 14:25; Admin Dose 30 ML; Start 12/26/18 at 16:30 Lactated Ringer's 1,000 ml @ 100 mls/hr Q10H IV Last administered on 12/27/18 13:03; Admin Dose 100 MLS/HR; Start 12/26/18 at 16:19 Aspirin (Aspirin) 81 mg DAILY PO Last administered on 12/30/18 08:30; Admin Dose 81 MG; Start 12/27/18 at 09:00 Hydromorphone HCl (Dilaudid) 1 mg Q3H PRN IV SEVERE PAIN LEVEL 7-10 Last administered on 12/27/18 03:26; Admin Dose 1 MG; Start 12/26/18 at 16:30 Oxycodone HCl (Roxicodone) 15 mg Q4H PRN PO MODERATE PAIN LEVEL 4-6 Last administered on 12/30/18 08:41; Admin Dose 15 MG; Start 12/26/18 at 16:30 Amlodipine Besylate (Norvasc) 5 mg DAILY PO Last administered on 12/30/18 08:32; Admin Dose 5 MG; Start 12/27/18 at 09:00 Benazepril HCl (Lotensin) 20 mg DAILY PO Last administered on 12/30/18 08:31; Admin Dose 20 MG; Start 12/27/18 at 09:00 Hydralazine HCl (Apresoline) 10 mg Q4H PRN IV SBP >150; Start 12/26/18 at 17:30 Atorvastatin Calcium (Lipitor) 40 mg DAILY PO Last administered on 12/30/18 08:30; Admin Dose 40 MG; Start 12/27/18 at 09:00 Vancomycin HCl (Vanco Iv Per Pharmacy) VANCOMYCIN PER PHARMACY PER PROTOCOL XX ; Start 12/26/18 at 23:30 Cefepime HCl 50 ml @ 100 mls/hr Q8 IVPB Last administered on 12/30/18 05:17; Admin Dose 100 MLS/HR; Start 12/27/18 at 06:30 Oxycodone HCl (Oxycontin) 20 mg BID PO Last administered on 12/30/18 08:33; Adm in Dose 20 MG; Start 12/27/18 at 09:00 Gabapentin (Neurontin) 100 mg TID PO Last administered on 12/30/18 08:32; Admin Dose 100 MG; Start 12/27/18 at 09:00 Trazodone HCl (Desyrel) 50 mg HS PRN PO insomnia; Start 12/27/18 at 09:00 Vancomycin HCl 250 ml @ 125 mls/hr Q12H IVPB Last administered on 12/30/18 01:52; Admin Dose 125 MLS/HR; Start 12/29/18 at 02:00 Miscellaneous Information (*Rx Drug Level Order Reminder*) VANCO TR LEVEL PRIOR... 1300 ONCE XX ; Start 12/30/18 at 13:00; Stop 12/30/18 at 13:01 Naproxen (Naprosyn) 500 mg BID PO Last administered on 12/30/18 08:32; Admin Dose 500 MG; Start 12/29/18 at 21:00 EMMA BURROUGHS NP Dec 30, 2018 09:15
[2018-12-30 16:03] VITALS: BP 151/73; PULSE 66; RESP 18
--- NOTE | 2018-12-30 19:44 | PN ---
Date/Time of Note Date/Time of Note DATE: 12/30/18 TIME OF EVALUATION : 09:39 Assessment/Plan VTE Prophylaxis Risk score (from Ns)>0 risk: 8 SCD applied (from Ns): Yes SCD contraindicated: low risk/ambulating Pharmacological prophylaxis: NA/contraindicated Pharm contraindication: low risk/ambulating Lines/Catheters IV Catheter Type (from Nrsg): Mid Line Urinary Cath still in place: No Assessment/Plan Hospital Course 68 yo M with PMH HTN, HLD, gastritis, BPH, thoracic aortic aneurysm, and left shoulder pain presented for elective L shoulder Irrigation, debridement of the left shoulder with polyethylene exchange and placement of antibiotic beads. POD #4 Assessment/Plan 1. Left shoulder infection s/p elective L shoulder Irrigation, debridement of the left shoulder with polyethylene exchange and placement of antibiotic beads. POD #3 - post operative management per Ortho recommendations - ID consultation appreciate and awaiting culture results from left shoulder. All cultures negative to date. - continue current pain control 2. HTN - stable - continue home medications 3. HLD - continue statin 4. h/o Thoracic AAA - has outpatient cardiology follow up 5. Insomnia - Trazodone PRN 6. Disposition - ID to review cultures and provide final recs and case fitter to arrange for home IV abx. Patient ready for d/c once this is setup. Result Diagram: 12/30/18 0430 12/29/18 0443 Results 24hrs Laboratory Tests Test 12/30/18 04:30 12/30/18 13:27 White Blood Count 6.3 Red Blood Count 3.41 L Hemoglobin 10.5 L Hematocrit 31.6 L Mean Corpuscular Volume 92.7 Mean Corpuscular Hemoglobin 30.8 Mean Corpuscular Hemoglobin Concent 33.2 Red Cell Distribution Width 12.4 Platelet Count 323 Mean Platelet Volume 11.6 H Immature Granulocytes % 0.500 H Neutrophils % 58.0 Lymphocytes % 29.0 Monocytes % 6.2 Eosinophils % 5.3 Basophils % 1.0 Nucleated Red Blood Cells % 0.0 Immature Granulocytes # 0.030 Neutrophils # 3.6 Lymphocytes # 1.8 Monocytes # 0.4 Eosinophils # 0.3 Basophils # 0.1 Nucleated Red Blood Cells # 0.0 Vancomycin Level Trough 14.2 Subjective 24 Hr Interval Summary Constitutional: no complaints Exam/Review of Systems Exam Vitals Vital Signs Date Temp Pulse Resp B/P (MAP) Pulse Ox O2 O2 Flow FiO2 Time Delivery Rate 12/30/18 98.4 66 18 151/73 98 16:03 (99) 12/30/18 Room Air 07:48 12/27/18 2.0 08:59 Intake and Output 12/29/18 12/29/18 12/30/18 1414:59 22:59 06:59 IntakeIntake Total 360 ml 1420 ml 300 ml BalanceBalance 360 ml 1420 ml 300 ml Exam General: Ambulating around room without any issues. No acute distress Respiratory: Clear to auscultation bilaterally. no wheezing or rhonchi Cardiovascular: S1, S2, regular rhythm and rate, no obvious murmurs Gastrointestinal: soft, non-tender to palpation, nondistended, bowel sounds heard. Neurological: Moves all extremities spontaneously Ext: left arm in sling Skin: No new skin lesions. dressing in place Results Results 24hrs Laboratory Tests Test 12/30/18 04:30 12/30/18 13:27 White Blood Count 6.3 Red Blood Count 3.41 L Hemoglobin 10.5 L Hematocrit 31.6 L Mean Corpuscular Volume 92.7 Mean Corpuscular Hemoglobin 30.8 Mean Corpuscular Hemoglobin Concent 33.2 Red Cell Distribution Width 12.4 Platelet Count 323 Mean Platelet Volume 11.6 H Immature Granulocytes % 0.500 H Neutrophils % 58.0 Lymphocytes % 29.0 Monocytes % 6.2 Eosinophils % 5.3 Basophils % 1.0 Nucleated Red Blood Cells % 0.0 Immature Granulocytes # 0.030 Neutrophils # 3.6 Lymphocytes # 1.8 Monocytes # 0.4 Eosinophils # 0.3 Basophils # 0.1 Nucleated Red Blood Cells # 0.0 Vancomycin Level Trough 14.2 Medications Medication Current Medications Magnesium Hydroxide (Milk Of Mag) 30 ml BID PRN PO CONSTIPATION Last administered on 12/29/18at 14:25; Admin Dose 30 ML; Start 12/26/18 at 16:30 Lactated Ringer's 1,000 ml @ 100 mls/hr Q10H IV Last administered on 12/27/18at 13:03; Admin Dose 100 MLS/HR; Start 12/26/18 at 16:19 Aspirin (Aspirin) 81 mg DAILY PO Last administered on 12/30/18at 08:30; Admin Dose 81 MG; Start 12/27/18 at 09:00 Hydromorphone HCl (Dilaudid) 1 mg Q3H PRN IV SEVERE PAIN LEVEL 7-10 Last administered on 12/27/18 03:26; Admin Dose 1 MG; Start 12/26/18 at 16:30 Oxycodone HCl (Roxicodone) 15 mg Q4H PRN PO MODERATE PAIN LEVEL 4-6 Last administered on 12/30/18 18:11; Admin Dose 15 MG; Start 12/26/18 at 16:30 Amlodipine Besylate (Norvasc) 5 mg DAILY PO Last administered on 12/30/18 08:32; Admin Dose 5 MG; Start 12/27/18 at 09:00 Benazepril HCl (Lotensin) 20 mg DAILY PO Last administered on 12/30/18 08:31; Admin Dose 20 MG; Start 12/27/18 at 09:00 Hydralazine HCl (Apresoline) 10 mg Q4H PRN IV SBP >150; Start 12/26/18 at 17:30 Atorvastatin Calcium (Lipitor) 40 mg DAILY PO Last administered on 12/30/18 08:30; Admin Dose 40 MG; Start 12/27/18 at 09:00 Vancomycin HCl (Vanco Iv Per Pharmacy) VANCOMYCIN PER PHARMACY PER PROTOCOL XX ; Start 12/26/18 at 23:30 Cefepime HCl 50 ml @ 100 mls/hr Q8 IVPB Last administered on 12/30/18 13:41; Admin Dose 100 MLS/HR; Start 12/27/18 at 06:30 Oxycodone HCl (Oxycontin) 20 mg BID PO Last administered on 12/30/18 08:33; Admin Dose 20 MG; Start 12/27/18 at 09:00 Gabapentin (Neurontin) 100 mg TID PO Last administered on 12/30/18 13:19; Admin Dose 100 MG; Start 12/27/18 at 09:00 Trazodone HCl (Desyrel) 50 mg HS PRN PO insomnia; Start 12/27/18 at 09:00 Vancomycin HCl 250 ml @ 125 mls/hr Q12H IVPB Last administered on 12/30/18 15:13; Admin Dose 125 MLS/HR; Start 12/29/18 at 02:00 Naproxen (Naprosyn) 500 mg BID PO Last administered on 12/30/18at 08:32; Admin Dose 500 MG; Start 12/29/18 at 21:00 JEEVAN BENSON Dec 30, 2018 19:44
[2018-12-30 19:55] VITALS: BP 137/67; PULSE 70; RESP 18
[2018-12-30] MEDS: MAGNESIUM HYDROXIDE 30ML CUP PO PRN (21:01)
[2018-12-30] MEDS: oxyCODONE (CR) 10 MG TAB [oxyCONTIN] PO SCH (21:01)
[2018-12-31 01:49] VITALS: BP 136/73; PULSE 64; RESP 18
[2018-12-31] MEDS: VANCOMYCIN 1 GM 250 ML IVPB SCH ×2 (02:14→14:00)
[2018-12-31] MEDS: oxyCODONE 15 MG TAB PO PRN ×3 (02:14→11:40)
[2018-12-31] MEDS: CEFEPIME 2GM/50 ML (PMX) 50 ML IVPB SCH ×2 (05:31→14:10)
[2018-12-31 08:30] VITALS: BP 138/75; PULSE 86; RESP 18
[2018-12-31] MEDS: NAPROXEN 500 MG TAB PO SCH (09:45)
[2018-12-31] MEDS: ATORVASTATIN 40 MG TAB PO SCH (09:45)
[2018-12-31] MEDS: GABAPENTIN 100 MG CAP PO SCH ×2 (09:45→13:12)
[2018-12-31] MEDS: AMLODIPINE 5 MG TAB PO SCH (09:45)
[2018-12-31] MEDS: BENAZEPRIL 20 MG TAB PO SCH (09:46)
[2018-12-31] MEDS: ASPIRIN 81 MG TAB PO SCH (09:46)
[2018-12-31] MEDS: oxyCODONE (CR) 10 MG TAB [oxyCONTIN] PO SCH (09:53)
[2018-12-31] MEDS ORDERED: GABA100C14 PO (11:25)
[2018-12-31] MEDS ORDERED: OXYC15TA PO (11:25)
[2018-12-31] MEDS ORDERED: DOCU250C58 PO (11:25)
--- NOTE | 2018-12-31 11:26 | PDOCDIS ---
Discharge Instructions CONDITION [id number] Patient Condition: [id number] Stable HOME CARE INSTRUCTIONS: [id number] Diet Instructions: [id number] Regular ACTIVITY: [id number] Activity Restrictions: [id number] Slowly Increase Activity Rest between Activity Avoid heavy lifting Do not Drive Do not operate Machinery Do not operate Power Tool Avoid Heavy Housework [id number] Bathing Restrictions: [id number] Shower FOLLOW UP/APPOINTMENTS Follow-up Plan followup with dr Vides as he has told you You ave to take stool softeners with your opiate pain medications and drink lost of water. JEEVAN BENSON Dec 31, 2018 11:26
--- NOTE | 2018-12-31 12:23 | DS ---
DATE OF ADMISSION: 12/26/2018 DATE OF DISCHARGE: 12/31/2018 PRESENTING COMPLAINT: Elective left shoulder irrigation with debridement of left shoulder with polye thylene exchange and placement of antibiotic beads after 5 weeks of worsening pain and recent left-si ded total shoulder repair infection. HOSPITAL COURSE: The patient was brought in electively for surgery by orthopedic surgery, Dr. Delmar Vides and medicine team was consulted for medical management. Also, infectious disease team was con sulted and Dr. Heidi Wilson and the rest of her team saw the patient. INTERVENTIONS: 1. Please review orthopedic interventions from 12/26/2018. 2. The patient also had a PICC line placed 12/29/2018. CULTURES: Grew out Staphylococcus aureus. DISPOSITION: To home with IV antibiotics and home health. Infectious disease recommended IV vancomy eunice and cefepime for 6 weeks thorough 02/06/2019 with weekly CBC, BMP and sed rate, and the patient i s to follow up with infectious disease in 1 to 2 weeks after discharge. DISCHARGE MEDICATIONS: For a complete list of discharge medications, please review the patient's ashutosh rt. DISCHARGE CONDITION: Stable. DISCHARGE DIET: Low cholesterol, low fat. FINAL DIAGNOSES: 1. Left shoulder infection, status post elective right shoulder irrigation, debridement and placemen t of antibiotic beads. 2. Hypertension, uncontrolled. 3. Dyslipidemia, stable. 4. History of thoracic AAA to be followed outpatient. 5. Chronic insomnia. Time spent on discharge coordination 40 minutes. Dictated By: JEEVAN BENSON MD BA/NTS Conf#: [id number] DID#: [id number] CC: DELMAR VIDES MD;*EndCC*
--- NOTE | 2018-12-31 16:08 | CONS ---
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 please order weekly CBC, BMP, ESR while Pt's on IV antibiotics. Side effects were explained to Pt (so far none reported) Consultation Date/Type/Reason Admit Date/Time Dec 26, 2018 at 10:44 Initial Consult Date 12/26/18 Requesting Provider: DELMAR MALLOY Date/Time of Note DATE: 12/31/18 TIME: 16:04 24 HR Interval Summary Free Text/Dictation patient is feeling better. He notes he is scheduled for d/c today. cx has ret urned prelim S,aureus Exam/Review of Systems Exam Vitals Vital Signs Date Temp Pulse Resp B/P (MAP) Pulse Ox O2 O2 Flow FiO2 Time Delivery Rate 12/31/18 98.2 86 18 138/75 98 Room Air 08:30 (96) 12/27/18 2.0 08:59 Intake and Output 12/30/18 12/30/18 12/31/18 1515:00 23:00 07:00 IntakeIntake Total 1190 ml 690 ml 640 ml BalanceBalance 1190 ml 690 ml 640 ml Constitutional: alert, oriented, well developed Psych: no complaints, nl mood/affect Head: normocephalic, atraumatic Eyes: nl conjunctiva, EOMI, nl lids, nl sclera, PERRL ENMT: nl external ears & nose, nl lips & teeth, nl nasal mucosa & septum Respiratory: clear to auscultation, normal air movement Cardiovascular: regular rate and rhythm, nl pulses Gastrointestinal: soft, nl liver, spleen, non-tender Neurological: BOARD LAYER II-XII intact, nl mental status, nl speech, nl strength Results Result Diagram: 12/30/18 0430 12/31/18 0450 Results 24hrs Laboratory Tests Test 12/31/18 04:50 Sodium Level 139 Potassium Level 4.6 Chloride Level 100 Carbon Dioxide Level 32 H Anion Gap 7 Blood Urea Nitrogen 23 H Creatinine 0.89 Est Glomerular Filtrat Rate mL/min > 60 Glucose Level 96 Calcium Level 9.4 Medications Medication Current Medications Magnesium Hydroxide (Milk Of Mag) 30 ml BID PRN PO CONSTIPATION Last administered on 12/30/18 21:01; Admin Dose 30 ML; Start 12/26/18 at 16:30 Aspirin (Aspirin) 81 mg DAILY PO Last administered on 12/31/18 09:46; Admin Dose 81 MG; Start 12/27/18 at 09:00 Hydromorphone HCl (Dilaudid) 1 mg Q3H PRN IV SEVERE PAIN LEVEL 7-10 Last administered on 12/27/18 03:26; Admin Dose 1 MG; Start 12/26/18 at 16:30 Oxycodone HCl (Roxicodone) 15 mg Q4H PRN PO MODERATE PAIN LEVEL 4-6 Last administered on 12/31/18 11:40; Admin Dose 15 MG; Start 12/26/18 at 16:30 Amlodipine Besylate (Norvasc) 5 mg DAILY PO Last administered on 12/31/18 09:45; Admin Dose 5 MG; Start 12/27/18 at 09:00 Benazepril HCl (Lotensin) 20 mg DAILY PO Last administered on 12/31/18 09:46; Admin Dose 20 MG; Start 12/27/18 at 09:00 Hydralazine HCl (Apresoline) 10 mg Q4H PRN IV SBP >150; Start 12/26/18 at 17:30 Atorvastatin Calcium (Lipitor) 40 mg DAILY PO Last administered on 12/31/18 09:45; Admin Dose 40 MG; Start 12/27/18 at 09:00 Vancomycin HCl (Vanco Iv Per Pharmacy) VANCOMYCIN PER PHARMACY PER PROTOCOL XX ; Start 12/26/18 at 23:30 Cefepime HCl 50 ml @ 100 mls/hr Q8 IVPB Last administered on 12/31/18at 14:10; Admin Dose 100 MLS/HR; Start 12/27/18 at 06:30 Gabapentin (Neurontin) 100 mg TID PO Last administered on 12/31/18at 13:12; Admin Dose 100 MG; Start 12/27/18 at 09:00 Trazodone HCl (Desyrel) 50 mg HS PRN PO insomnia; Start 12/27/18 at 09:00 Vancomycin HCl 250 ml @ 125 mls/hr Q12H IVPB Last administered on 12/31/18at 02:14; Admin Dose 125 MLS/HR; Start 12/29/18 at 02:00 Naproxen (Naprosyn) 500 mg BID PO Last administered on 12/31/18at 09:45; Admin Dose 500 MG; Start 12/29/18 at 21:00 Oxycodone HCl (Oxycontin) 10 mg BID PO Last administered on 12/31/18at 09:53; Admin Dose 10 MG; Start 12/30/18 at 21:00 Miscellaneous Information (* Miscellaneous Pharmacy Order) Hold 1400 Vanco do se,... ONCE XX ; Start 12/31/18 at 14:00; Stop 12/31/18 at 23:00 JOANNA REED MD Dec 31, 2018 16:08
--- NOTE | 2019-01-02 13:21 | RADRPT ---
Vent Rate: 73 bpm RR Interval: 0 msec FL Interval: 152 msec QRS Duration: 80 msec QT Interval: 414 msec QTC Interval: 456 msec P-R-T [place]: 37 - 56 - 54 degrees Normal sinus rhythm Low voltage QRS Borderline ECG Electronically Signed By: Jim Ferrara
== END 2018-12-31 16:00 | disposition home health service (06) | DRG 494 ==
LOC: REC 10:44 → MS1 17:46
PROVIDERS: ADMIT Orthopaedic Surgery; ATTEND Orthopaedic Surgery
PROC: 0RPK0JZ Removal of Synthetic Substitute from Left Shoulder Joint, Open Approach (ICD-10-PCS; 2018-12-26)
PROC: 0RUK0JZ Supplement Left Shoulder Joint with Synthetic Substitute, Open Approach (ICD-10-PCS; 2018-12-26)
PROC: 3E0U029 Introduction of Other Anti-infective into Joints, Open Approach (ICD-10-PCS; 2018-12-26)
PROC: 0PBD0ZZ Excision of Left Humeral Head, Open Approach (ICD-10-PCS; principal; 2018-12-26 13:00)
PROC: 05HY33Z Insertion of Infusion Device into Upper Vein, Percutaneous Approach (ICD-10-PCS; 2018-12-29)
DX: T84.59XA Infection and inflammatory reaction due to other internal joint prosthesis, initial encounter (principal); Y79.2 Prosthetic and other implants, materials and accessory orthopedic devices associated with adverse incidents; I10 Essential (primary) hypertension; E78.5 Hyperlipidemia, unspecified; N40.0 Benign prostatic hyperplasia without lower urinary tract symptoms; I71.2 Thoracic aortic aneurysm, without rupture; Z96.642 Presence of left artificial hip joint; G47.00 Insomnia, unspecified
CPT/HCPCS: 36569; 71045; 76937; 80048; 80202; 82565; 84520; 85025; 85651; 87070; 87075; 87102; 87116; 88300; 93005; C1713; C1769; C1776; J0171; J0360; J0690; J0692; J0735; J1100; J1170; J1885; J2250; J2405; J2765; J2795; J3010; J3370; J7040; J7050; J7120